=== PATIENT | female | born 1925 | race Caucasian/White ===

== ENCOUNTER 2016-09-03 01:28 | Inpatient (IN) | payer OTHER ==
[2016-09-03] MEDS ORDERED: OFIRMEV 1000 MG/ISOTONIC SOLN 100 ML IV ONE (01:44)
[2016-09-03] MEDS ORDERED: NS 1,000 ML IV ONE (01:44)
--- NOTE | 2016-09-03 01:49 | PROVIDER DOCUMENTATION ---
HPI-Fever - General Source: EMS - History of Present Illness-Fever Fever Severity/Quality: reports: other (100.2 orally) Timing: reports: still present, getting worse Severity: reports: severe Context: reports: decreased mental status, from senior living Associated Symptoms: reports: fatigue, fever/chills, vomiting. denies: arm pain , back/neck pain, chest pain, constipation, diarrhea, dizziness, genitourinary problems, headaches, heartburn, loss of appetite, muscle aches, nausea, seizure , shortness of breath, syncope <Galileo Bragg - Last Filed: 09/03/16 02:28> <Harsh Juan - Last Filed: 09/03/16 03:33> - General Stated Complaint: hyperglycemie,hypertensive,tachycardia Time Seen by Provider: 09/03/16 01:34 Allergies/Adverse Reactions: Patient Allergies Allergy/AdvReac Type Severity Reaction Status Date / Time MARI Inhibitors Allergy Unknown Verified 09/03/16 02:24 clonidine Allergy ANAPHYLAXIS Verified 09/03/16 02:24 influenza virus vaccine, Allergy HIVES Verified 09/03/16 02:24 specific [Influenza Virus Vacc,Specific] Penicillins Allergy Unknown Verified 09/03/16 02:24 Home Medications: Amlodipine [Norvasc] 5 mg PO QAM 04/23/15 Aspirin [Aspirin EC] 81 mg PO QAM 04/23/15 Levothyroxine [Synthroid] 50 mcg PO QAM 04/23/15 - History of Present Illness-Fever Nature of Presenting Problem: Pt is a 89 yof who presents to ER via EMS with CC of hyperglycemia, hypertension , and tachycardia from [facility]. On exam, pt is warm to the touch and lethargic. (Galileo Bragg) Review of Systems - Adult - REVIEW OF SYSTEMS - ADULT ROS:: Per EMS Constitutional: reports: fever, fatique. denies: chills Eyes: reports: no symptoms reported Ears, Nose, Mouth & Throat: reports: no symptoms reported Cardiovascular: reports: irregular heart rate (tachycardic), other (Hypertensive ). denies: chest pain, edema, heart murmur, orthopnea, palpitations, poor circulation, PND, syncope Respiratory: reports: no symptoms reported Gastrointestinal: reports: vomiting, other (hyperglycemic). denies: abdominal pain, constipation, diarrhea, nausea, poor appetite Genitourinary: reports: no symptoms reported Musculoskeletal: reports: no symptoms reported Integumentary: reports: no symptoms reported Neurological: reports: no symptoms reported Psychiatric: reports: no symptoms reported Endocrine: reports: no symptoms reported Hematologic/Lymphatic: reports: no symptoms reported Allergic/Immunologic: reports: no symptoms reported All Other Systems: Reviewed and Negative <Bragg,Galileo Last Filed: 09/03/16 02:28> Past History - Adult - PAST MEDICAL HISTORY-ADULT Review of Records: reports: Nursing Assessment Review, Medications Reviewed Cardiovascular: reports: CAD, HTN, hyperlipidemia, other (carotid blockage) Musculoskeletal: reports: arthritis Neurological: reports: CVA, 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), dementia, Seizures/Epilepsy - PRIOR SURGERIES/PROCEDURES Surgical/Procedure History: reports: hysterectomy - IMMUNIZATION STATUS Childhood Immunizations: See Nurse Assessment Flu Vaccine: See Nurse Assessment <YemiGalileo Last Filed: 09/03/16 02:28> Physical Exam-General - PHYSICAL EXAM-ADULT Initial Vital Signs Reviewed: Yes - CONSTITUTIONAL General Appearance: alert, moderate distress, lethargic - HEAD, EARS, NOSE, MOUTH & THROAT HENMT: normocephalic/atraumatic, moist mucous membranes, normal ENT inspection - NECK Neck: non-tender, full range of motion, supple - RESPIRATORY Respiratory: chest non-tender, lungs clear, rhonchi (R sided) - CARDIOVASCULAR Cardiovascular: normal peripheral pulses, tachycardia - GASTROINTESTINAL (ABDOMEN) Abdominal Exam: normal bowel sounds, non tender, soft - LYMPHATIC Lymphatic: no adenopathy - MUSCULOSKELETAL Back Exam: no CVA tenderness, no vertebral tenderness - SKIN Integumentary: normal color, diaphoresis, warm - NEUROLOGIC Neurologic: grossly normal, no motor/sensory deficits - PSYCHIATRIC Psych/Mental Status: normal mood/affect, normal thought content, normal thought process, oriented x 3 <BraggGalileo Last Filed: 09/03/16 02:28> Progress - REASSESSMENT Reassessment #1 Time Reassessed: 02:25 Status: other (Dr. Juan discussed results of labs/x-rays with pt's family.) - EKG 1 Time of EKG reading by physician:: 01:52 EKG Read and Signed by:: Harsh Juan EKG Interpretation (*Must complete 3 of following elements*): Abnormal (ST & T wave abnormality, consider lateral ischemia per Dr. Juan) Rate: 133 Rhythm: Sinus tachycardia - XRAY 1 XRAY: Bilateral XRAY Study: Chest Impression: See EMR Report XRAY Interpretation: Normal per Dr. Juan <Galileo Bragg - Last Filed: 09/03/16 02:28> <Harsh Juan - Last Filed: 09/03/16 03:33> - PLAN OF CARE/RESULTS Progress/Plan/Lab Results: Laboratory Tests 09/03/16 09/03/16 09/03/16 01:25 01:25 01:38 WBC 19.78 H RBC 4.26 Hgb 12.9 Hct 38.1 MCV 89.4 MCH 30.3 MCHC 33.9 RDW Std Deviation 13.1 Plt Count 247 MPV 12.1 H Immature Gran % (Auto) 0.3 Neut % (Auto) 95.6 H Lymph % (Auto) 1.4 L [place] % (Auto) 2.5 Eos % (Auto) 0.1 Baso % (Auto) 0.1 Immature Gran # (Auto) 0.06 H Neut # 18.91 H Lymph # 0.28 L [place] # 0.50 Eos # 0.02 Baso # 0.01 Specimen Type ARTERIAL Sample Site R RADIAL pH 7.38 pCO2 31 L pO2 50 L HCO3 20.1 Base Excess -5.7 L Oxyhemoglobin 82.3 L* ABG O2 Sat (Calculated) 15.3 ABG O2 Saturation 85.3 L ABG Carboxyhemoglobin 2.00 ABG Methemoglobin 1.5 Nicolas Test YES A-a O2 Difference 61.0 Total Hemoglobin 13.2 Lactate 5.10 H* Liter Flow 0.0 Blood Gas Modality ROOM AIR FiO2 % 21.0 Sodium 134 L Potassium 4.2 Chloride 95 L Carbon Dioxide 18 L Anion Gap 21 BUN 23 H Creatinine 1.0 H Estimated GFR/1.73 m2 52 BUN/Creatinine Ratio 23 Glucose 535 H* Calculated Osmolality 296 Calcium 8.1 L Total Bilirubin 0.23 AST 24 ALT 14 Alkaline Phosphatase 106 H Total Protein 7.0 Albumin 4.0 Globulin 3.0 Albumin/Globulin Ratio 1.3 Urine Source Urine Color Urine Turbidity Urine pH Ur Specific [place] Urine Protein Ur Glucose (Stick) Ur Ketones (Stick) Urine Blood Urine Nitrite Urine Bilirubin Urobilinogen Dipstick Urine Leukocytes Urine WBC (Auto) Urine RBC (Auto) U Epithel Cells (Auto) Urine Bacteria (Auto) Acetone Level 09/03/16 09/03/16 01:50 02:11 WBC RBC Hgb Hct MCV MCH MCHC RDW Std Deviation Plt Count MPV Immature Gran % (Auto) Neut % (Auto) Lymph % (Auto) [place] % (Auto) Eos % (Auto) Baso % (Auto) Immature Gran # (Auto) Neut # Lymph # [place] # Eos # Baso # Specimen Type Sample Site pH pCO2 pO2 HCO3 Base Excess Oxyhemoglobin ABG O2 Sat (Calculated) ABG O2 Saturation ABG Carboxyhemoglobin ABG Methemoglobin Nicolas Test A-a O2 Difference Total Hemoglobin Lactate Liter Flow Blood Gas Modality FiO2 % Sodium Potassium Chloride Carbon Dioxide Anion Gap BUN Creatinine Estimated GFR/1.73 m2 BUN/Creatinine Ratio Glucose Calculated Osmolality Calcium Total Bilirubin AST ALT Alkaline Phosphatase Total Protein Albumin Globulin Albumin/Globulin Ratio Urine Source CATH Urine Color YELLOW Urine Turbidity CLEAR Urine pH 5.5 Ur Specific [place] 1.022 Urine Protein 30 A Ur Glucose (Stick) >1000 A Ur Ketones (Stick) TRACE A Urine Blood NEGATIVE Urine Nitrite NEGATIVE Urine Bilirubin NEGATIVE Urobilinogen Dipstick NORMAL Urine Leukocytes NEGATIVE Urine WBC (Auto) <10 Urine RBC (Auto) <10 U Epithel Cells (Auto) <10 Urine Bacteria (Auto) NEGATIVE Acetone Level SMALL A Orders Category Date Time Status Finger Stick Blood Sugar (ED) DIRECTED Care 09/03/16 01:37 Active CHEST-PORTABLE [RAD] Stat Exams 09/03/16 01:46 Taken ABG [RESP] Routine Lab 09/03/16 01:38 Completed ACETONE SERUM [CHEM] Stat Lab 09/03/16 01:50 Completed BLOOD CULTURE [BLDCUL] Stat Lab 09/03/16 01:50 Results CBC WITH ELECTRONIC DIFF [HEME] Stat Lab 09/03/16 01:25 Completed CMP [COMPREHENSIVE METABOLIC PANEL] [CHEM] Stat Lab 09/03/16 01:25 Completed INFLUENZA SCREEN A/B Stat Lab 09/03/16 02:44 Completed UA NIMS W/REFLEX CULT [URINALYSIS] Stat Lab 09/03/16 02:11 Completed 0.9% Sodium Chloride Inj [Ns] 1,000 ml Med 09/03/16 01:44 Discontinued IV 999 mls/hr Acetaminophen [Ofirmev 1000 mg/Isotonic Soln] 100 ml Med 09/03/16 01:44 Discontinued IV NOW Azithromycin 500 mg/Ns [Zithromax 500 mg/Ns] 250 ml Med 09/03/16 03:31 Active IV NOW CefTRIAXONE 1 GM/NS [Rocephin 1 gm/Ns] 50 ml Med 09/03/16 03:31 Active IV NOW Insulin Human Regular [Humulin R] Med 09/03/16 03:01 Discontinued 5 unit IV NOW ONE Vital Signs Temp Pulse Resp BP Pulse Ox 09/03/16 02:22 102.2 F H 111 H 22 176/88 97 09/03/16 02:05 102.3 F H 136 H 30 H 220/97 98 MARI Inhibitors Allergy (Verified 09/03/16 02:24) Unknown clonidine Allergy (Verified 09/03/16 02:24) ANAPHYLAXIS influenza virus vaccine, specific [Influenza Virus Vacc,Specific] Allergy ( Verified 09/03/16 02:24) HIVES Penicillins Allergy (Verified 09/03/16 02:24) Unknown Amlodipine [Norvasc] 5 mg PO QAM 04/23/15 Aspirin [Aspirin EC] 81 mg PO QAM 04/23/15 Levothyroxine [Synthroid] 50 mcg PO QAM 04/23/15 Levetiracetam [Keppra] 1,000 mg PO BID #60 tablet 04/24/15 I&O 09/01/16 09/02/16 09/03/16 06:59 06:59 06:59 Output Total 30 Balance -30 Laboratory 09/03/16 09/03/16 09/03/16 02:11 01:50 01:38 WBC RBC Hgb Hct MCV MCH MCHC RDW Std Deviation Plt Count MPV Immature Gran % (Auto) Neut % (Auto) Lymph % (Auto) [place] % (Auto) Eos % (Auto) Baso % (Auto) Immature Gran # (Auto) Neut # Lymph # [place] # Eos # Baso # Specimen Type ARTERIAL Sample Site R RADIAL pH 7.38 pCO2 31 L pO2 50 L HCO3 20.1 Base Excess -5.7 L Oxyhemoglobin 82.3 L* ABG O2 Sat (Calculated) 15.3 ABG O2 Saturation 85.3 L ABG Carboxyhemoglobin 2.00 ABG Methemoglobin 1.5 Nicolas Test YES A-a O2 Difference 61.0 Total Hemoglobin 13.2 Lactate 5.10 H* Liter Flow 0.0 Blood Gas Modality ROOM AIR FiO2 % 21.0 Sodium Potassium Chloride Carbon Dioxide Anion Gap BUN Creatinine Estimated GFR/1.73 m2 BUN/Creatinine Ratio Glucose Calculated Osmolality Calcium Total Bilirubin AST ALT Alkaline Phosphatase Total Protein Albumin Globulin Albumin/Globulin Ratio Urine Source CATH Urine Color YELLOW Urine Turbidity CLEAR Urine pH 5.5 Ur Specific [place] 1.022 Urine Protein 30 A Ur Glucose (Stick) >1000 A Ur Ketones (Stick) TRACE A Urine Blood NEGATIVE Urine Nitrite NEGATIVE Urine Bilirubin NEGATIVE Urobilinogen Dipstick NORMAL Urine Leukocytes NEGATIVE Urine WBC (Auto) <10 Urine RBC (Auto) <10 U Epithel Cells (Auto) <10 Urine Bacteria (Auto) NEGATIVE Acetone Level SMALL A 09/03/16 09/03/16 01:25 01:25 WBC 19.78 H RBC 4.26 Hgb 12.9 Hct 38.1 MCV 89.4 MCH 30.3 MCHC 33.9 RDW Std Deviation 13.1 Plt Count 247 MPV 12.1 H Immature Gran % (Auto) 0.3 Neut % (Auto) 95.6 H Lymph % (Auto) 1.4 L [place] % (Auto) 2.5 Eos % (Auto) 0.1 Baso % (Auto) 0.1 Immature Gran # (Auto) 0.06 H Neut # 18.91 H Lymph # 0.28 L [place] # 0.50 Eos # 0.02 Baso # 0.01 Specimen Type Sample Site pH pCO2 pO2 HCO3 Base Excess Oxyhemoglobin ABG O2 Sat (Calculated) ABG O2 Saturation ABG Carboxyhemoglobin ABG Methemoglobin Nicolas Test A-a O2 Difference Total Hemoglobin Lactate Liter Flow Blood Gas Modality FiO2 % Sodium 134 L Potassium 4.2 Chloride 95 L Carbon Dioxide 18 L Anion Gap 21 BUN 23 H Creatinine 1.0 H Estimated GFR/1.73 m2 52 BUN/Creatinine Ratio 23 Glucose 535 H* Calculated Osmolality 296 Calcium 8.1 L Total Bilirubin 0.23 AST 24 ALT 14 Alkaline Phosphatase 106 H Total Protein 7.0 Albumin 4.0 Globulin 3.0 Albumin/Globulin Ratio 1.3 Urine Source Urine Color Urine Turbidity Urine pH Ur Specific [place] Urine Protein Ur Glucose (Stick) Ur Ketones (Stick) Urine Blood Urine Nitrite Urine Bilirubin Urobilinogen Dipstick Urine Leukocytes Urine WBC (Auto) Urine RBC (Auto) U Epithel Cells (Auto) Urine Bacteria (Auto) Acetone Level (Harsh Juan) Departure <Galileo Bragg - Last Filed: 09/03/16 02:28> - Departure Time of Disposition Order: 03:33 Certified Medical Emergency: Emergent <Harsh Juan - Last Filed: 09/03/16 03:33> - Departure DIAGNOSIS: Febrile illness, acute, Hyperglycemia Disposition: ADMITTED INPATIENT 09 Condition: Stable Attestation - Scribe Verification/Attestation Scribe:: Galileo Bragg Acting as Scribe for:: Harsh Juan Scribe documention review:: This chart was documented by a scribe and accurately reflects the service the provider performed and the decisions made by the provider. <Galileo Bragg - Last Filed: 09/03/16 02:28> Physician Attestation
[2016-09-03 01:53] LABS: ALLEN TEST YES; BE -5.7 mmoll (-3.0-3.0); BLOOD TYPE ARTERIAL; DRAW SITE R RADIAL; METHB 1.5 % (0.0-1.5); O2(CT) 15.3 mL/dL (15.0-23.0); PCO2(98.6) 31 mmHg (35-45); PO2(98.6) 50 mmHg (60-100); SAMPLE BLOOD; SAO2 85.3 % (95.0-100.0); THB 13.2 g/dL (11.5-17.4); pH(98.6) 7.38 (7.35-7.45)
[2016-09-03 01:55] LABS: MODALITY ROOM AIR
[2016-09-03 02:35] LABS: BASO% 0.1 % (0.0-0.8); EOS# 0.02 X1000 (0.0-0.7); EOS% 0.1 % (0.0-10.0); HEMATOCRIT 38.1 % (37.0-47.0); HEMOGLOBIN 12.9 g/dL (12.0-16.0); IMM GRAN# 0.06 X1000 (0.0-0.04); IMM GRAN% 0.3 % (0.0-0.5); LYMPH# 0.28 X1000 (1.2-3.4); LYMPH% 1.4 % (20.5-51.1); MANUAL DIFF NEEDED? NO; MCH 30.3 PG (27-31); MCHC 33.9 g/dL (33-37); MCV 89.4 FL (81-99); MONO% 2.5 % (1.7-9.3); MPV 12.1 FL (7.4-10.4); NEUT% 95.6 % (42.2-75.2); PLT 247 X1000 (130-400); RBC 4.26 XMIL (4.2-5.4)
[2016-09-03 02:36] LABS: URINE CULTURE NEEDED? NO; URINE MICRO REVIEW NEEDED? NO; URINE SOURCE CATH
[2016-09-03 02:39] LABS: BILIRUBIN URINE NEGATIVE (NEGATIVE); BLOOD URINE NEGATIVE (NEGATIVE); COLOR YELLOW; GLUCOSE URINE >1000 mg/dL (NEGATIVE); LEUKOCYTES URINE NEGATIVE (NEGATIVE); NITRITE URINE NEGATIVE (NEGATIVE); PH URINE 5.5; PROTEIN URINE 30 mg/dL (NEGATIVE); SP GRAVITY URINE 1.022; TURBIDITY URINE CLEAR (CLEAR); UROBILINOGEN URINE NORMAL (NORMAL)
[2016-09-03 02:40] LABS: UR EPITHELIAL CELLS <10 /HPF (<10); URINE BACTERIA NEGATIVE /HPF; URINE RBC <10 /HPF (<10); URINE WBC <10 /HPF (<10)
[2016-09-03 02:49] LABS: CALCIUM 8.1 mg/dL (8.8-10.2); POTASSIUM 4.2 mmol/L (3.5-5.1); TOTAL BILIRUBIN 0.23 mg/dL (0.20-1.00)
[2016-09-03] MEDS ORDERED: HUMULIN R IV ONE (03:01)
[2016-09-03] MEDS ORDERED: ZITHROMAX 500 MG/NS 250 ML IV ONE (03:31)
[2016-09-03] MEDS ORDERED: ROCEPHIN 1 GM/NS 50 ML IV ONE (03:31)
[2016-09-03] MEDS ORDERED: MORPHINE IV ONE (05:19)
[2016-09-03] MEDS: DUONEB (A & A) INH PRN ×3 (05:20→15:51)
[2016-09-03 07:46] LABS: HEMOGLOBIN A1C 9.9 % (4.8-6.0)
[2016-09-03] MEDS ORDERED: NS 1,000 ML IV SCH (07:51)
[2016-09-03] MEDS ORDERED: TYLENOL PO PRN (07:51)
--- NOTE | 2016-09-03 07:55 | SEPSIS: TISSUE PERFUSION ASSMT ---
Sepsis: Tissue Perfusion Assmt - Physical Exam Assessment Date: 09/03/16 Time Assessment Initialized: 06:00 Vital Signs: Last Vital Signs Temp 99.2 F 09/03/16 05:22 Pulse 112 H 09/03/16 07:35 Resp 16 09/03/16 07:35 BP 145/65 09/03/16 05:22 Pulse Ox 93 L 09/03/16 07:35 Height 5 ft 6 in Weight 156 lb Lung Sounds:: lungs clear Heart Sounds:: Regular Capillary Refill Time: Less Than 2 Seconds Peripheral Pulse Evaluation:: radial (R): 3+, radial (L): 3+, dorsalis-pedis (R) : 2+, dorsalis-pedis (L): 2+, posterior tibialis (R): 2+, posterior tibialis (L) : 2+ Skin Exam:: pink - Impression Impression:: Tissue Perfusion Adequate - Plan Plan:: See Orders
[2016-09-03] MEDS: ASPIRIN EC PO SCH (09:00)
[2016-09-03] MEDS ORDERED: APRESOLINE IV ONE (09:39)
--- NOTE | 2016-09-03 10:51 | HISTORY AND PHYSICAL ---
PRIMARY CARE PROVIDER: Maxime Gongora MD at [facility] CHIEF COMPLAINT: Fever, shortness of breath, vomiting. HISTORY OF PRESENT ILLNESS: Ms. Diallo is an 89-year-old female who presented to the ER this morning at approximately 1:30. Staff at [facility] sent the patient for evaluation due to fever, shortness of breath, vomiting, as well as some lethargy , also. Upon arrival to the ER the patient was tachycardic as well as hypertensive. She was hyperglycemic, as well, with serum blood glucose of 535. She was also warm to touch and was lethargic initially upon arrival. The patient's vital signs upon arrival to the ER were temperature of 102.3, heart rate 136, respirations 30, blood pressure was 220/97, and oxygen saturation was in the 80s. The patient was placed on nasal cannula at 2 L and her oxygen saturation did improve into the 90s. She was given Tylenol for her fever which did reduce down to 99.2. She was also given a total of 2 L of normal saline bolus, one was by EMS prior to arrival and the second was given in the ER. Since the fluid bolus the patient's heart rate has decreased, as well. Her blood pressure has also decreased with the last reading being 145/65. The patient's lung sounds upon arrival did have rhonchi noted. ER staff, also per the patient, has had a wet nonproductive cough, as well, since arrival to the ER. Upon evaluation in the ER the patient was found to be hypoxic as previously mentioned with a sat in the 80s. She also had an elevated white blood cell count of 19.7. Arterial blood gases did reveal a pH of 7.38, pCO2 of 31, pO2 of 50, and a lactate of 5.10. Blood cultures were obtained. A urinalysis was obtained which showed no signs of infection. A chest x-ray was performed which did not show any acute abnormalities at this time and no signs of pneumonia, but we are awaiting official radiology overread. At this time it does appear that the patient does have a possible sepsis as well as a febrile illness from an unknown source at this time. Given that she has had fever as well as some shortness of breath, tachypnea, hypoxia, a nonproductive wet cough, and leukocytosis, we suspect that she might have a pneumonia and we will continue treating her as such with antibiotics. I did speak with the patient's family member, who was present with her, and she stated that normally the patient is awake and alert. She does know who she is, where she is , though does have some dementia and does not always know what month or time it is. She states that she normally can recognize family members and can carry on a conversation and requests any needs that she has. She states that she is pretty active at the [facility] and that she does get around in her wheelchair there. She stated that she last saw her on Sunday and that she was at her normal at that time. Upon my evaluation in the ER the patient was able to tell me her name as well as that she is in the hospital, though she was pretty drowsy upon assessment so was not easily arousable with light tactile and verbal stimulation. The patient did previously receive morphine just prior to my assessment, as well. In the ER the nurse did perform a swallowing screen with the patient and she was able to swallow 60 mL of water without any difficulty and showed no signs of choking or difficulty swallowing with this. We will admit the patient to [facility] for further evaluation of her possible sepsis, febrile illness, and hyperglycemia. REVIEW OF SYSTEMS: A 10-point review of systems was conducted with the patient and all were negative except for pertinent positives mentioned in the above HPI. The patient does have some dyspnea noted as well as an elevated heart rate. She also did have one episode of vomiting just prior to arrival in the ER for which the ER nurse reported did appear to have a dark, possibly coffee grounds appearance. PAST MEDICAL HISTORY: 1. CVA. 2. 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 3. Hypertension. 4. Seizures. 5. Hypothyroidism. 6. Hyperlipidemia. 7. Dementia. 8. Diabetes mellitus type 2. 9. Muscle weakness. 10. Dysphasia. 11.Depression. PAST SURGICAL HISTORY: Hysterectomy. SOCIAL HISTORY: No known tobacco, alcohol, or illicit drug use. The patient is and currently is a resident at [facility]. She is able to perform activities at [facility] via wheelchair. FAMILY HISTORY: Positive for CVA. ALLERGIES: The patient has allergies to MARI inhibitors, clonidine, influenza vaccine, and penicillin. Though the patient is allergic to penicillin, she did receive a dose of Rocephin in the ER and did not show any signs of adverse or anaphylactic reaction. HOME MEDICATIONS: 1. MiraLAX 17 g p.o. every other day. 2. Lispro insulin per sliding scale. 3. Synthroid 50 mcg p.o. q.a.m. 4. Keppra 1000 mg p.o. b.i.d. 5. Aspirin 81 mg p.o. q.a.m. 6. Norvasc 5 mg p.o. q.a.m. DIAGNOSTIC DATA/LABORATORY RESULTS: White blood cell count is 19.7, hemoglobin 12.9, hematocrit 38.1, platelet count 247. Sodium 134, potassium 4.2, chloride 95, bicarbonate is 18, BUN 23, creatinine 1.0 with a GFR of 52. Glucose was 535. Hemoglobin A1c was 9.9. Calcium 8.1, magnesium 1.8. Liver function tests within normal limits. Alkaline phosphatase of 106. Troponin was less than 0.01. Pro BNP was 332. TSH was 1.61. Plasma lactate was initially 5.10 with a repeat after fluid bolus of 3.5. Serum acetone level had a small amount noted. Arterial blood gases were obtained on room air with a pH of 7.3, pCO2 of 31, pO2 of 58, HCO3 of 20.1 with oxygen hemoglobin of 82.3 and O2 saturation of 85.3. A urinalysis obtained via catheter was positive for protein, greater than 1000 glucose, trace ketones, but was negative for nitrites, blood, leukocytes, white blood cells, or bacteria. EKG performed in the ER showed a sinus tachycardia with an ST and T-wave abnormality, considered lateral ischemia at a rate of 133. A chest x-ray portable was performed in the ER which showed no acute disease at this time, but we are awaiting the official radiology overread. PHYSICAL EXAMINATION: VITAL SIGNS: Temperature 99.2, heart rate 115, respirations 20, blood pressure of 145/65, oxygen saturation is 93% nasal cannula at 2 L. GENERAL: Ms. Diallo is an 89-year-old female who was resting on the ER stretcher in no acute distress at this time. She was drowsy upon examination, though was easily arousable with light tactile stimulation and verbal calling of her name. She was able to tell me her name and that she was at the hospital, although was not able to answer many other questions at this time. HEENT: Head is atraumatic, normocephalic. Pupils are equal, round and reactive to light, were 3 mm bilaterally and brisk. Sclerae are white, no lesions noted. Conjunctivae are pink. Oral mucosa is dry. Oropharynx is clear. NECK: Supple, trachea is midline. CARDIOVASCULAR: The patient has S1, S2 noted. No murmurs, gallops, or rubs appreciated with a regular rhythm that was slightly tachycardic. PULMONARY: The patient has symmetrical chest expansion bilaterally. Lung sounds are clear to auscultation upon my examination bilaterally and full winters. She is not in any acute respiratory distress at this time and is maintaining oxygen saturation of 93% to 94% on nasal cannula at 3 L at this time. ABDOMEN: Soft, nondistended, though the patient does have a slightly protuberant abdomen noted. No facial grimacing noted upon palpation. Bowel sounds were present in all 4 quadrants, were normoactive. GENITOURINARY: The patient at this time has had a Garnett catheter placed and does have clear yellow urine noted in the drainage bag. EXTREMITIES: The patient does have +1 pitting edema noted to bilateral lower extremities and possibly from mid calf down. Pulse, motor, and sensory is intact in all extremities at this time. Pedal pulses are 2+ bilaterally. Capillary refill is less than 2. INTEGUMENTARY: The patient's skin is pink, warm, dry, and intact. No lesions or sores noted. NEUROLOGICAL: The patient is alert and oriented to person and place only. She was, as previously mentioned, slightly drowsy upon examination, though was easily arousable to light tactile stimulation by tapping her shoulder and calling her name verbally. Cranial nerves 2-12 appear to be grossly intact. ASSESSMENT AND PLAN: 1. Possible sepsis. The patient's lactate is elevated, as well, as she does have leukocytosis with a white blood cell count of 19. This has an unknown source at this time , though given her symptoms of fever, tachycardia, hypoxia, as well as a nonproductive wet cough , we suspect pneumonia, though a chest x-ray at this time does appear to be clear. We will go ahead and treat her with azithromycin and Rocephin q.24h. We have ordered blood cultures as well as a sputum culture and we will monitor her status closely and await results of her blood culture. The patient did receive a total of 2 L normal saline bolus in the ER as well. 2. Febrile illness. Will continue treatment as in number one. 3. Leukocytosis. We will continue with treatment as in number one, as well. 4. Hypoxia. At this time the patient is maintaining oxygen saturations of 93% to 94% with a nasal cannula at [address] her on continuous pulse oximetry and continue to monitor this. 5. Acute kidney injury. This does appear to be mild. It could likely be secondary to some volume depletion as well as infection. We will provide her with gentle fluid resuscitation of normal saline 100 an hour and we will continue to follow. 6. Diabetes mellitus type 2, uncontrolled. Her hemoglobin A1c was elevated at 9.9 and she is hyperglycemic, though this could also be contributory to her current infection, though we will treat her with Humalog sliding scale insulin low dose and continue to follow her closely. 7. Hypertension. We will continue with her daily medicine of [facility]. 8. Hypothyroidism. Her TSH was within normal limits. We will continue her Synthroid at 50 mcg p.o. daily. As previously mentioned, we did perform a swallowing screen on the patient and she did not have any difficulty. We have placed the patient on a mechanical soft diet with thin liquids for which what she receives at the halfway as well. We did also place her on aspiration precautions just in case, and we will closely monitor her for this as well. We will place her on CIC with telemetry. She will have DVT prophylaxis provided with SCDs. We will do pattern fingerstick blood sugars. Strict intake and output q.8h. We will do vital signs q.4h. We will also give her albuterol/Atrovent treatments q.4-6h. p.r.n. as needed. We have placed a Case Management and [employer] consult, as well, for possible placement and return to [facility] on her discharge. We placed an order for a CBC and a BMP tomorrow morning and are awaiting blood cultures and sputum culture at this time. The nurse did report in the ER that the patient did have a vomiting episode just prior to her arrival in the ER; this did appear to be dark and possibly coffee grounds in appearance. We did order a Gastroccult as well as a Hemoccult stool just to rule this out, though the patient's hemoglobin and hematocrit are within normal limits at this time. So we will just await those results and continue to follow. Further orders and recommendations pending hospital course, diagnostic studies, and physician evaluation. Dictated by EUGENIO Vu for Joel Benedict MD Patient seen and evaluated by I and I agree with PEDRO Amezquita' plans. Admit to Inpatient. Continue broad spectrum IV antibiotics and follow pancultures. Serial exams, serial neurochecks. Fall, aspiration precautions. MTDD
[2016-09-03] MEDS: HUMALOG SUBQ SCH ×3 (11:00→21:00)
[2016-09-03] MEDS ORDERED: VANCOMYCIN IV PER PHARMACY MISC SCH (11:45)
[2016-09-03] MEDS ORDERED: ZOSYN 3.375 GM/NS 50 ML IV SCH (11:45)
--- NOTE | 2016-09-03 12:20 | Diag Imaging Result Document ---
PROCEDURE NAME: CHEST-PORTABLE - 09/03/2016 AP PORTABLE CHEST AT 0205 HOURS: FINDINGS: The inspiration is less optimal than on 07/15/2015. Otherwise, there has been no appreciable change. IMPRESSION: Poor inspiration.
[2016-09-03] MEDS: NS 1,000 ML IV SCH ×2 (12:27→23:29)
[2016-09-03 12:47] LABS: BANDS 20 % (0-1); LYMPHS 4 % (21-51); MONO 2 % (1-9)
[2016-09-03 13:16] LABS: AGAP 16; BUN 18 mg/dL (8-22); CALCIUM 7.2 mg/dL (8.8-10.2); CHLORIDE 102 mmol/L (98-107); COSMO 284; POTASSIUM 3.4 mmol/L (3.5-5.1); SODIUM 138 mmol/L (136-145); TCO2 20 mmol/L (25-35)
[2016-09-03] MEDS: AZACTAM 1 GM in NS 50 ML IV SCH ×2 (13:18→20:10)
[2016-09-03] MEDS: SYNTHROID PO SCH (13:28)
[2016-09-03] MEDS: MIRALAX PO SCH (13:28)
[2016-09-03] MEDS: NORVASC PO SCH (13:28)
[2016-09-03] MEDS: KEPPRA PO SCH ×2 (13:28→23:29)
[2016-09-03] MEDS ORDERED: VANCOMYCIN 1,750 MG in NS 250 ML IV ONE (14:00)
--- NOTE | 2016-09-03 15:17 | PROGRESS NOTE ---
DATE: 09/03/2016 SUBJECTIVE: Ms. Diallo was just admitted just a while ago. She is coming from a longterm with chief complaint of shortness of breath and hypoxemia and has been admitted by Dr. Benedict as possible sepsis with the source possibly coming from the lungs. Today Ms. Diallo herself has not been able to give any form of history. Per the nursing staff, she has just been a little sleepy. OBJECTIVE: Vital signs: Blood pressure is 164/96, pulse of 109, respirations 18, temperature is 99.2 degrees. Patient had a temperature of 102.3 degrees. General: Ms. Diallo is an 89-year- old, female. She was in bed. She seems to be a little bit tachypneic. HEENT: Mucosa slightly dry. Anicteric. Acyanotic. Neck: Supple. Chest: Air entry is bilaterally reduced. Cardiovascular: Regular rate and rhythm. Abdomen: Soft, distended, but nontender. Extremities: No pedal edema. Central Nervous System: Patient is sleepy but is easily arousable. Follows some simple commands. Seems to have some underlying dementia. LABORATORY DATA: WBC is 19.78, hemoglobin is 12.9, platelet count of 247,000. Sodium is 134, potassium 4.2, chloride 95, bicarb 18, gap of 21. Patient had small acetone. ASSESSMENT: 1. Sepsis of unclear source, could be possibly from genitourinary versus the lungs. The patient is allergic to penicillin per her chart so we are going to discontinue the ceftriaxone and azithromycin and broaden our coverage with aztreonam 1 g q.8 h. as well as vancomycin. 2. Hypoxemia on presentation. A chest x-ray so far is negative. The patient has improved remarkably on nasal oxygenation. Will therefore just keep eye on this. 3. Acute kidney injury secondary to dehydration. Will continue with IV fluids. 4. High anion gap metabolic acidosis, likely multifactorial including lactic acidosis as well as possible diabetic ketoacidosis. The patient is getting hydration and antibiotics for the lactic acidosis which we think is coming from the sepsis. In terms of the possible DKA, I will repeat the BMP to see where the bicarbonate and the gap are. If they are still present, I will institute the DKA protocol and transfer the patient to the ICU. 5. Hypothyroidism, stable. 6. Hypertension, controlled. 7. Diabetes mellitus with A1c of 9.9 consistent with very uncontrolled. PLAN: As I said, I am going to repeat a BMP to see where the gap and where the bicarb are. We will change the antibiotics as mentioned above. If the patient has still gap and DKA, we will transfer her to the ICU.
[2016-09-03] MEDS ORDERED: NS NEB INH SCH (22:45)
[2016-09-04] MEDS ORDERED: ROCEPHIN 1 GM/NS 50 ML IV SCH (04:00)
[2016-09-04] MEDS: AZACTAM 1 GM in NS 50 ML IV SCH ×3 (04:20→21:02)
[2016-09-04] MEDS ORDERED: ZITHROMAX 500 MG/NS 250 ML IV SCH (05:00)
[2016-09-04 05:03] LABS: MANUAL DIFF NEEDED? NO
[2016-09-04] MEDS: HUMALOG SUBQ SCH ×4 (06:12→21:02)
[2016-09-04] MEDS: SYNTHROID PO SCH (06:12)
[2016-09-04 06:42] LABS: AGAP 13; BUN 16 mg/dL (8-22); CALCIUM 7.3 mg/dL (8.8-10.2); CHLORIDE 106 mmol/L (98-107); COSMO 285; POTASSIUM 3.8 mmol/L (3.5-5.1); SODIUM 139 mmol/L (136-145); TCO2 20 mmol/L (25-35)
[2016-09-04 06:55] LABS: BASO% 0.2 % (0.0-0.8); EOS# 0.06 X1000 (0.0-0.7); EOS% 0.6 % (0.0-10.0); HEMATOCRIT 30.7 % (37.0-47.0); HEMOGLOBIN 10.2 g/dL (12.0-16.0); IMM GRAN# 0.02 X1000 (0.0-0.04); IMM GRAN% 0.2 % (0.0-0.5); LYMPH# 1.12 X1000 (1.2-3.4); MCH 30.2 PG (27-31); MCHC 33.2 g/dL (33-37); MCV 90.8 FL (81-99); MONO# 0.47 X1000 (0.11-0.59); MONO% 4.6 % (1.7-9.3); MPV 11.9 FL (7.4-10.4); NEUT% 83.4 % (42.2-75.2); PLT 174 X1000 (130-400); RBC 3.38 XMIL (4.2-5.4)
[2016-09-04] MEDS: ATROVENT NEB INH PRN ×5 (07:33→23:02)
[2016-09-04] MEDS: XOPENEX NEB INH PRN ×5 (07:33→23:02)
[2016-09-04] MEDS: KEPPRA PO SCH ×2 (09:55→21:02)
[2016-09-04] MEDS: NORVASC PO SCH (09:55)
[2016-09-04] MEDS: ASPIRIN EC PO SCH (09:55)
--- NOTE | 2016-09-04 10:03 | EKG Report ---
Test Performed on : 09/03/2016 01:52:38 AM Test Reason : ED. Not ordered in [place] Blood Pressure : / mmHG Vent. Rate : 133 BPM Atrial Rate : 133 BPM P-R Int : 156 ms QRS Dur : 084 ms QT Int : 286 ms P-R-T Axes : 070 018 138 degrees QTc Int : [address] & T wave abnormality, consider lateral ischemia Abnormal ECG When compared with ECG of 15-JUL-2015 20:25, premature ventricular complexes. are no longer present Unconfirmed Result
--- NOTE | 2016-09-04 10:57 | PROGRESS NOTE ---
DATE: 09/04/2016 SUBJECTIVE: The patient is a little bit sleepy today, but according to the family, daughter, who is at bedside, she is a little bit more alert. Breathing fine, according to her too. As per nursing staff, she was developing some episode of disorientation, when she becomes a little bit restless and trying to pull out some IV lines and also Garnett catheter. OBJECTIVE: Vital Signs: Temperature 97.2 degrees, heart rate 95, respiratory rate 16, blood pressure 177/78. O2 saturation 97% on 3 L nasal cannula. General Examination: This is an 89- year-old female, lying in bed, in no acute distress. HEENT: Head is normocephalic, atraumatic. Anicteric sclerae and pale conjunctivae. Neck: Supple. No jugular venous distention noted. No carotid bruits. No lymphadenopathy. No thyromegaly. Cardiovascular: S1, S2 heard. Tachycardic. No murmurs, gallops, or rubs. Respiratory Examination: Decreased breath sounds globally with some coarse breath sounds noted in both bases. Patient is not using any accessory muscles or having work of breathing. Abdomen: Soft, nontender to palpation. Bowel sounds present. No organomegaly. Extremities: No clubbing, cyanosis, or edema. Peripheral pulses present in both legs. Neurological Examination: The patient is sleepy, but seems like she moves 4 extremities. LABORATORY DATA: White cell count 10.16, hemoglobin 10.2, hematocrit 30.7, platelets 174,000. BMP unremarkable with CO2 of 20. ASSESSMENT AND PLAN: 1. Sepsis of unclear etiology. The patient's mental status is improving. We are not exactly, at this point, know where this infection is coming from. Urinalysis is normal and the chest x- ray on admission was normal, although with poor inspirations. So, at this time we are going to order a CT of the chest to see there is any infiltrates or pneumonia that we are missing. At this point, we are going to continue with vancomycin and aztreonam. 2. Hypoxemia presentation. Definitely now this patient is improving with O2 saturations at 95 on 3 L nasal cannula. 3. Acute kidney injury. This condition has completely resolved. 4. High anion gap metabolic acidosis. At least in the last ABG, there is no metabolic acidosis. Anion gap is back to normal. 5. Hypothyroidism. Stable. 6. Hypertension. Patient is on amlodipine 5 mg p.o. daily that we are going to increase to b.i.d., because the blood pressure is between 160 and 170 systolic blood pressure. 7. Diabetes mellitus type 2. A1c is 9.9, so I think this patient has a not well-controlled diabetes mellitus. We will continue with the same management.
--- NOTE | 2016-09-04 11:55 | Diag Imaging Result Document ---
PROCEDURE NAME: CT THORAX W/O CONTRAST - 09/04/2016 CT OF THE CHEST WITHOUT CONTRAST: FINDINGS: There is considerable motion artifact. There are a number of nonspecific centimeter and smaller size mediastinal nodes. There is a tiny amount of fluid in the right costophrenic sulcus. There are patchy alveolar opacities in the superior segment of the right lower lobe and the right upper lobe. There are no previous studies. There are opacities present in the left lower lobe and lingula. There is gas and some fluid present throughout the thoracic esophagus and there is a large hiatal hernia. IMPRESSION: Bronchopneumonia. The possibility of aspiration pneumonia cannot be excluded.
[2016-09-04] MEDS: NS 1,000 ML IV SCH (13:52)
[2016-09-05] MEDS ORDERED: VANCOMYCIN 1,400 MG in NS 250 ML IV SCH (02:00)
[2016-09-05] MEDS: NS 1,000 ML IV SCH ×2 (02:48→21:42)
[2016-09-05] MEDS: XOPENEX NEB INH PRN ×6 (03:03→23:09)
[2016-09-05] MEDS: ATROVENT NEB INH PRN ×6 (03:03→23:09)
[2016-09-05 04:57] LABS: MANUAL DIFF NEEDED? NO
[2016-09-05 05:06] LABS: EOS# 0.06 X1000 (0.0-0.7); EOS% 0.9 % (0.0-10.0); HEMATOCRIT 30.1 % (37.0-47.0); HEMOGLOBIN 9.7 g/dL (12.0-16.0); IMM GRAN# 0.02 X1000 (0.0-0.04); IMM GRAN% 0.3 % (0.0-0.5); LYMPH# 1.34 X1000 (1.2-3.4); LYMPH% 20.9 % (20.5-51.1); MCH 29.4 PG (27-31); MCHC 32.2 g/dL (33-37); MCV 91.2 FL (81-99); MONO% 7.8 % (1.7-9.3); MPV 11.5 FL (7.4-10.4); NEUT% 70.1 % (42.2-75.2); PLT 174 X1000 (130-400)
[2016-09-05 05:28] LABS: AGAP 15; BUN 11 mg/dL (8-22); CALCIUM 7.5 mg/dL (8.8-10.2); CHLORIDE 106 mmol/L (98-107); COSMO 286; POTASSIUM 3.1 mmol/L (3.5-5.1); SODIUM 142 mmol/L (136-145); TCO2 21 mmol/L (25-35)
[2016-09-05] MEDS: AZACTAM 1 GM in NS 50 ML IV SCH ×3 (05:59→23:15)
[2016-09-05] MEDS: SYNTHROID PO SCH (06:21)
[2016-09-05] MEDS: HUMALOG SUBQ SCH ×4 (06:57→22:18)
[2016-09-05] MEDS ORDERED: KLOR-CON PO ONE (08:50)
[2016-09-05] MEDS: KEPPRA PO SCH ×2 (09:51→21:41)
[2016-09-05] MEDS: NORVASC PO SCH (09:51)
[2016-09-05] MEDS: ASPIRIN EC PO SCH (09:51)
[2016-09-05] MEDS: MIRALAX PO SCH (09:51)
--- NOTE | 2016-09-05 16:22 | PROGRESS NOTE ---
DATE: 09/05/2016 SUBJECTIVE: This patient is awake today. She is answering some of my questions. I think she has some kind of baseline dementia. Her daughter is at the bedside. She is breathing better according to the daughter. OBJECTIVE: Vital Signs: Temperature 98 degrees, pulse 102, respiratory rate 18, blood pressure 155/66, oxygen saturation 100% on 2 L of nasal cannula. HEENT: Head normocephalic. No trauma. PERRLA. Neck: Supple. No JVD. No masses. Cardiovascular: Regular rhythm and rate. No murmurs. Tachycardic. Lungs: Right side upper and lower lobe rhonchi, decreased breath sounds at the right base. Abdomen: Soft, nontender, nondistended. No hepatosplenomegaly. Extremities: No edema. No clubbing. No cyanosis. Neurological: The patient is alert. She is following some of my commands, she is able to say her name and she is able to return I recognize the family members, she is not oriented in time, she is on and off oriented in place. LABORATORY: WBC 6.4, hemoglobin 9.7, hematocrit 30.1, platelets 174,000. Sodium 142, potassium 3.1, chloride 106, bicarbonate 21, BUN 11, creatinine 0.6, glucose 163, calcium 7.5. ASSESSMENT AND PLAN: 1. Right lower lung and the right upper lung pneumonia, possibly related to aspiration pneumonia, we are going to continue with the antibiotics. This patient is getting better. 2. Hypoxemia on presentation, she is getting better. We will continue with oxygen. At this moment she is on nasal cannula. 3. Acute kidney injury. Resolved. 4. Hypothyroidism, stable. Continue with treatment. 5. Hypertension. Patient is on amlodipine 5 mg p.o. daily. It was increased to b.i.d. We will continue monitoring her blood pressure. Compared with the admission, the blood pressure is better. 6. Uncontrolled diabetes, her hemoglobin A1c is 9.9, it is not well controlled. We will continue with the same management. The blood sugar is getting better. CRITICAL CARE TIME: 35 minutes.
[2016-09-06] MEDS: ATROVENT NEB INH PRN ×4 (03:10→19:22)
[2016-09-06] MEDS: XOPENEX NEB INH PRN ×4 (03:10→19:22)
[2016-09-06 04:53] LABS: MANUAL DIFF NEEDED? NO
[2016-09-06 04:56] LABS: BASO% 0.2 % (0.0-0.8); EOS# 0.09 X1000 (0.0-0.7); EOS% 1.7 % (0.0-10.0); HEMATOCRIT 30.8 % (37.0-47.0); HEMOGLOBIN 10.2 g/dL (12.0-16.0); LYMPH# 1.22 X1000 (1.2-3.4); LYMPH% 22.5 % (20.5-51.1); MCH 29.9 PG (27-31); MCHC 33.1 g/dL (33-37); MCV 90.3 FL (81-99); MONO# 0.45 X1000 (0.11-0.59); MONO% 8.3 % (1.7-9.3); MPV 11.3 FL (7.4-10.4); NEUT% 67.3 % (42.2-75.2); PLT 193 X1000 (130-400); RBC 3.41 XMIL (4.2-5.4)
[2016-09-06 05:27] LABS: AGAP 14; BUN 7 mg/dL (8-22); CALCIUM 7.8 mg/dL (8.8-10.2); CHLORIDE 105 mmol/L (98-107); COSMO 283; POTASSIUM 3.1 mmol/L (3.5-5.1); SODIUM 141 mmol/L (136-145); TCO2 22 mmol/L (25-35)
[2016-09-06] MEDS: SYNTHROID PO SCH (06:24)
[2016-09-06] MEDS: AZACTAM 1 GM in NS 50 ML IV SCH ×2 (06:25→18:39)
[2016-09-06] MEDS: HUMALOG SUBQ SCH ×4 (06:59→23:56)
[2016-09-06] MEDS: NS 1,000 ML IV SCH (08:49)
[2016-09-06] MEDS: ASPIRIN EC PO SCH (08:49)
[2016-09-06] MEDS: NORVASC PO SCH (08:49)
[2016-09-06] MEDS: KEPPRA PO SCH (08:49)
[2016-09-06] MEDS ORDERED: KLOR-CON PO ONE (09:00)
--- NOTE | 2016-09-06 13:32 | PROGRESS NOTE ---
DATE: 09/06/2016 SUBJECTIVE: This patient is awake today. Her son is at the bedside. I discussed with the son about care of baseline dementia and he corroborates that information. She is alert and oriented x2. She is not oriented in time. She recognizes her son and she is following commands. She is feeling much better today. She is breathing fine. She has no complaint. OBJECTIVE: Temperature 98.2 degrees, pulse 91, respiratory rate 21, blood pressure 161/74, O2 saturation 100% on nasal cannula.HEENT: Head normocephalic. No trauma. PERRLA. Neck: Supple. No JVD. No masses. Cardiovascular: RRR. No murmurs. No gallops. No rubs. Chest: Right side, right upper side and lower lobe rhonchi, decreased breath sounds at the right base. Abdomen: Soft, nontender, nondistended. No hepatosplenomegaly. Extremities: No edema. No clubbing. No cyanosis. Neurological: The patient is alert. She is following commands. She is alert at x2. She is able to recognize her family members. She is not oriented in time, and she is oriented on and off to place. LABORATORY: WBC 5.4, hemoglobin 10.2, hematocrit 30.8 platelet 193,000. Sodium 141, potassium 3.1, chloride 105, bicarbonate 22, BUN 7, creatinine 0.5. Glucose 170. Calcium 7.0. ASSESSMENT AND PLAN: 1. Right lower lung and right upper lung pneumonia possibly related to aspiration pneumonia. We are going to continue with antibiotics. This patient is getting much better. She is not complaining of shortness of breath. 2. Hypoxemia on presentation. She is getting better. We will continue with oxygen. At this moment she is on nasal cannula. She is not having work of breathing. 3. Acute kidney injury. Resolved. 4. Hypothyroidism, stable. Continue treatment. 5. Hypertension. This patient was on amlodipine 5 daily. I increased it to b.i.d. We will continue monitoring her blood pressure. Compared with admission the blood pressure is much better. 6. Uncontrolled diabetes. Her hemoglobin A1c is 9.9. This is not well controlled. We will continue with the same management. The blood sugar is better. Overall, this patient is doing much better. We will continue with the same treatment right now. [facility]. Once she is able to be discharged we will send her back to that place. I will transfer this patient to the medical floor for further treatment. CRITICAL CARE TIME: 35 minutes.
[2016-09-06] MEDS: VANCOMYCIN 1,400 MG in NS 250 ML IV SCH (14:14)
[2016-09-07] MEDS: NS 1,000 ML IV SCH ×2 (00:36→15:05)
[2016-09-07] MEDS: KEPPRA PO SCH ×3 (00:36→20:30)
[2016-09-07] MEDS: AZACTAM 1 GM in NS 50 ML IV SCH ×3 (01:39→17:20)
[2016-09-07 06:39] LABS: MANUAL DIFF NEEDED? NO
[2016-09-07] MEDS: HUMALOG SUBQ SCH ×4 (06:54→21:00)
[2016-09-07] MEDS: SYNTHROID PO SCH (06:55)
[2016-09-07 07:01] LABS: BASO% 0.5 % (0.0-0.8); EOS# 0.15 X1000 (0.0-0.7); EOS% 2.6 % (0.0-10.0); HEMATOCRIT 33.8 % (37.0-47.0); IMM GRAN# 0.03 X1000 (0.0-0.04); IMM GRAN% 0.5 % (0.0-0.5); LYMPH# 1.32 X1000 (1.2-3.4); LYMPH% 22.6 % (20.5-51.1); MCH 29.4 PG (27-31); MCHC 32.5 g/dL (33-37); MCV 90.4 FL (81-99); MONO# 0.55 X1000 (0.11-0.59); MONO% 9.4 % (1.7-9.3); MPV 11.5 FL (7.4-10.4); NEUT% 64.4 % (42.2-75.2); PLT 232 X1000 (130-400); RBC 3.74 XMIL (4.2-5.4)
[2016-09-07 07:14] LABS: AGAP 14; BUN 5 mg/dL (8-22); CALCIUM 8.2 mg/dL (8.8-10.2); CHLORIDE 105 mmol/L (98-107); COSMO 283; POTASSIUM 3.2 mmol/L (3.5-5.1); SODIUM 142 mmol/L (136-145); TCO2 23 mmol/L (25-35)
[2016-09-07] MEDS: XOPENEX NEB INH PRN ×3 (08:06→19:47)
[2016-09-07] MEDS: ATROVENT NEB INH PRN ×3 (08:06→19:47)
[2016-09-07] MEDS ORDERED: KLOR-CON PO ONE (08:22)
[2016-09-07] MEDS: MIRALAX PO SCH (09:06)
[2016-09-07] MEDS: NORVASC PO SCH (09:07)
[2016-09-07] MEDS: ASPIRIN EC PO SCH (09:07)
[2016-09-07] MEDS: VANCOMYCIN 1,400 MG in NS 250 ML IV SCH (15:05)
--- NOTE | 2016-09-07 16:49 | PROGRESS NOTE ---
DATE: 09/07/2016 SUBJECTIVE: This patient looks much better today. She is aware, her son is at the bedside, she is not complaining of shortness of breath, she is more alert, more oriented, she is doing much better. OBJECTIVE: Vital Signs: Temperature 98.2 degrees, pulse 83, respiratory rate 22, blood pressure 151/74, O2 saturation 93 on 2 L of nasal cannula. HEENT: Head normocephalic, no trauma. PERRLA. Neck: Supple. No JVD. No masses. Cardiovascular: RRR. No murmurs. No gallops. No rubs. Chest: Right side upper and lower lobe rhonchi, but compared with yesterday much better. Decreased breath sounds at the right base. Abdomen: Soft, nontender, nondistended. No hepatosplenomegaly. Extremities: No edema. No clubbing. No cyanosis. Neurological: The patient is alert. She is following commands. She is alert x2. She is able to recognize her family members. She is not oriented in time. LABORATORY: WBC 5.8, hemoglobin 11, hematocrit 33.8, platelets 232,000. Sodium 142, potassium 3.2, chloride 105, bicarbonate 23, BUN 5, creatinine 0.5, glucose 149, calcium 8.2. ASSESSMENT AND PLAN: 1. Right lower lung and right upper lung pneumonia, possibly related to aspiration pneumonia. We are going to continue with antibiotics. This patient is getting much better. She is not complaining of shortness of breath. 2. Hypoxemia on presentation, she is better. We will continue with oxygen. At this moment she is on nasal cannula and she is not having work of breathing. 3. Acute kidney injury. Resolved. 4. Hypothyroidism. Stable. Continue treatment. 5. Hypertension. This patient is getting amlodipine 5 twice a day, we will continue monitoring her blood pressure. 6. Uncontrolled diabetes. Her hemoglobin A1c is 9.9, this is not well controlled. We will continue with the same management. The blood sugar is better. Overall, this patient is doing much better. I will continue with the same treatment for now, she is coming from a care home, [facility]. Hopefully tomorrow I want to be able to send her back to that place.
[2016-09-08] MEDS: AZACTAM 1 GM in NS 50 ML IV SCH ×3 (01:08→18:30)
[2016-09-08] MEDS: HUMALOG SUBQ SCH ×5 (06:12→21:35)
[2016-09-08] MEDS: SYNTHROID PO SCH (06:13)
[2016-09-08] MEDS: NS 1,000 ML IV SCH ×3 (06:15→20:16)
[2016-09-08] MEDS: XOPENEX NEB INH PRN (07:38)
[2016-09-08] MEDS: ATROVENT NEB INH PRN (07:38)
[2016-09-08 07:58] LABS: AGAP 16; BUN 6 mg/dL (8-22); CHLORIDE 105 mmol/L (98-107); COSMO 280; POTASSIUM 4.5 mmol/L (3.5-5.1); SODIUM 140 mmol/L (136-145); TCO2 19 mmol/L (25-35)
[2016-09-08 08:28] LABS: BASO% 0.7 % (0.0-0.8); EOS# 0.18 X1000 (0.0-0.7); EOS% 2.5 % (0.0-10.0); HEMATOCRIT 32.6 % (37.0-47.0); HEMOGLOBIN 10.7 g/dL (12.0-16.0); IMM GRAN# 0.05 X1000 (0.0-0.04); IMM GRAN% 0.7 % (0.0-0.5); LYMPH# 1.54 X1000 (1.2-3.4); LYMPH% 21.2 % (20.5-51.1); MANUAL DIFF NEEDED? YES; MCH 30.2 PG (27-31); MCHC 32.8 g/dL (33-37); MCV 92.1 FL (81-99); MONO# 0.52 X1000 (0.11-0.59); MONO% 7.2 % (1.7-9.3); MPV 12.7 FL (7.4-10.4); NEUT% 67.7 % (42.2-75.2); PLT 158 X1000 (130-400); RBC 3.54 XMIL (4.2-5.4)
[2016-09-08 09:00] LABS: LYMPHS 16 % (21-51)
[2016-09-08 09:01] LABS: LARGE PLATELETS 1+
[2016-09-08] MEDS: NORVASC PO SCH (09:45)
[2016-09-08] MEDS: ASPIRIN EC PO SCH (09:45)
[2016-09-08] MEDS: KEPPRA PO SCH ×2 (09:45→20:17)
[2016-09-08] MEDS: VANCOMYCIN 1,400 MG in NS 250 ML IV SCH (13:56)
--- NOTE | 2016-09-08 14:36 | Diag Imaging Result Document ---
PROCEDURE NAME: CHEST-PORTABLE - 09/08/2016 CHEST, SINGLE VIEW: INDICATION: Shortness of breath. COMPARISON: 09/03/2016. FINDINGS: There is cardiomegaly. There is a right upper lobe and perihilar infiltrate suspicious for pneumonia. No effusion. The aorta is tortuous. IMPRESSION: 1. New right perihilar/right upper lobe infiltrate suspicious for pneumonia. 2. Cardiomegaly.
[2016-09-08] MEDS: DUONEB (A & A) INH SCH ×3 (16:10→22:40)
--- NOTE | 2016-09-08 18:24 | PROGRESS NOTE ---
DATE: 09/08/2016 SUBJECTIVE: This patient looks good but she is complaining about shortness of breath, when I checked her the respiratory rate was 23-25, she denies chest pain. No dizziness , no nausea, no vomiting, no sweating, no diarrhea, no constipation. I ordered a chest x-ray, that showed a new right perihilar/right upper lobe infiltrate suspicious for pneumonia. She is already on antibiotics. OBJECTIVE: Vital Signs: Temperature 98.1 degrees, pulse 127, respiratory rate 21, blood pressure 155/72, oxygen saturation 97% on room air. HEENT: Head normocephalic. No trauma. PERRLA. Neck: Supple. No JVD. No masses. Cardiovascular: RRR. No murmurs. Chest : Right side upper and lower lobe rhonchi, decreased breath sounds at the right base with some rales. Abdomen: Soft, nontender, nondistended. No hepatosplenomegaly. Extremities: No edema. No clubbing. No cyanosis. Neurological: The patient is alert. She is following commands. She is alert x2. She is able to recognize her family members. She is not oriented in time. LABORATORY: WBC 7.2, hemoglobin 10.7, hematocrit 32.6, platelets 158,000. Sodium 140, potassium 4.5, chloride 105, bicarbonate 19, BUN 6, creatinine 0.6, glucose 149, calcium 8. ASSESSMENT AND PLAN: 1. Right lower lung, perihilar and right upper lobe pneumonia, possibly related to aspiration pneumonia. This patient is having today shortness of breath. We will put this patient on breathing treatment. We will continue with the antibiotics. 2. Hypoxemia on presentation. She is better. We will continue with oxygen. At this moment she is not on nasal cannula and she is saturating okay. 3. Acute kidney injury. Resolved. 4. Hypothyroidism. Stable. Continue treatment. 5. Hypertension. We will continue with the same treatment for now. 6. Uncontrolled diabetes. Continue with the same management. [facility]
[2016-09-09] MEDS: AZACTAM 1 GM in NS 50 ML IV SCH ×3 (01:28→16:59)
[2016-09-09] MEDS: DUONEB (A & A) INH SCH ×6 (04:10→22:50)
[2016-09-09] MEDS: NS 1,000 ML IV SCH ×3 (06:15→22:46)
[2016-09-09] MEDS: HUMALOG SUBQ SCH ×4 (06:16→21:57)
[2016-09-09] MEDS: SYNTHROID PO SCH (06:16)
[2016-09-09 06:39] LABS: MANUAL DIFF NEEDED? NO
[2016-09-09 07:07] LABS: AGAP 12; BUN 6 mg/dL (8-22); CALCIUM 8.1 mg/dL (8.8-10.2); CHLORIDE 106 mmol/L (98-107); COSMO 283; POTASSIUM 3.2 mmol/L (3.5-5.1); SODIUM 141 mmol/L (136-145); TCO2 23 mmol/L (25-35)
[2016-09-09 07:15] LABS: BASO% 0.1 % (0.0-0.8); EOS# 0.08 X1000 (0.0-0.7); EOS% 1.2 % (0.0-10.0); HEMATOCRIT 31.1 % (37.0-47.0); HEMOGLOBIN 10.2 g/dL (12.0-16.0); IMM GRAN# 0.07 X1000 (0.0-0.04); LYMPH# 1.35 X1000 (1.2-3.4); LYMPH% 19.5 % (20.5-51.1); MCH 29.8 PG (27-31); MCHC 32.8 g/dL (33-37); MCV 90.9 FL (81-99); MONO# 0.39 X1000 (0.11-0.59); MONO% 5.6 % (1.7-9.3); MPV 11.1 FL (7.4-10.4); NEUT% 72.6 % (42.2-75.2); PLT 248 X1000 (130-400); RBC 3.42 XMIL (4.2-5.4)
[2016-09-09] MEDS ORDERED: KLOR-CON PO ONE (08:37)
[2016-09-09] MEDS: MIRALAX PO SCH (08:50)
[2016-09-09] MEDS: KEPPRA PO SCH ×2 (08:50→21:57)
[2016-09-09] MEDS: ASPIRIN EC PO SCH (08:50)
[2016-09-09] MEDS: NORVASC PO SCH ×2 (08:50→21:57)
[2016-09-09] MEDS: VANCOMYCIN 1,400 MG in NS 250 ML IV SCH (14:58)
--- NOTE | 2016-09-09 16:20 | PROGRESS NOTE ---
DATE: 09/09/2016 SUBJECTIVE: This patient states that she is feeling better, she is not complaining of shortness of breath, chest pain, nausea, vomiting, diarrhea or constipation. OBJECTIVE: Vital Signs: Temperature 97.4 degrees, pulse 89, respiratory rate 16, blood pressure 197/81, O2 saturation 97 on room air. HEENT: Head normocephalic. No trauma. PERRLA. Neck: Supple. No JVD. No masses. Cardiovascular: RRR. No murmurs. No gallops. No rubs. Chest: On the right side upper and lower lobe mild rhonchi, decreased breath sounds at the right base with wheeze, mild rales. Abdomen: Soft, nontender, nondistended. No hepatosplenomegaly. Extremities: No edema. No clubbing. No cyanosis. Neurological: The patient is alert. She is following commands. She is alert x2. She is able to recognize her family members and she is not oriented in time, she is not confused. LABORATORY: WBC 6.9, hemoglobin 10.2, hematocrit 31.1, platelet 248,000. Sodium 141, potassium 3.2, chloride 106, bicarbonate 23, BUN 6, creatinine 0.6, glucose 179, calcium 8.1. ASSESSMENT AND PLAN: 1. Right lower lung perihilar and right upper lung pneumonia possible related to aspiration pneumonia. She is not complaining today shortness of breath, no chest pain. We will continue with the breathing treatment and I will continue with the antibiotics. 2. Hypoxemia on presentation. She is better. We will continue with oxygen p.r.n. 3. Acute kidney injury. Resolved. 4. Hypothyroidism stable. Continue treatment. 5. Hypertension. Today I increased the dose of the amlodipine from 5 daily to 5 b.i.d. I will monitor. 6. Uncontrolled diabetes. The blood sugar is getting better. Continue with the same management. This patient is ready to go back to the residential. She is ready to be discharged, likely this is going to be on Sunday because on weekends we cannot send this patient.
[2016-09-10] MEDS: AZACTAM 1 GM in NS 50 ML IV SCH ×3 (02:46→18:57)
[2016-09-10] MEDS: DUONEB (A & A) INH SCH ×6 (03:55→23:43)
[2016-09-10] MEDS: HUMALOG SUBQ SCH ×4 (06:13→21:08)
[2016-09-10] MEDS: SYNTHROID PO SCH (06:13)
[2016-09-10 06:36] LABS: MANUAL DIFF NEEDED? NO
[2016-09-10 06:42] LABS: BASO% 0.2 % (0.0-0.8); EOS# 0.06 X1000 (0.0-0.7); EOS% 1.1 % (0.0-10.0); HEMATOCRIT 31.7 % (37.0-47.0); HEMOGLOBIN 10.1 g/dL (12.0-16.0); IMM GRAN# 0.04 X1000 (0.0-0.04); IMM GRAN% 0.7 % (0.0-0.5); LYMPH# 1.38 X1000 (1.2-3.4); LYMPH% 24.4 % (20.5-51.1); MCH 29.1 PG (27-31); MCHC 31.9 g/dL (33-37); MCV 91.4 FL (81-99); MONO# 0.52 X1000 (0.11-0.59); MONO% 9.2 % (1.7-9.3); MPV 10.8 FL (7.4-10.4); NEUT% 64.4 % (42.2-75.2); PLT 286 X1000 (130-400); RBC 3.47 XMIL (4.2-5.4)
[2016-09-10 06:56] LABS: AGAP 14; BUN 7 mg/dL (8-22); CALCIUM 8.2 mg/dL (8.8-10.2); CHLORIDE 107 mmol/L (98-107); COSMO 286; POTASSIUM 3.6 mmol/L (3.5-5.1); SODIUM 143 mmol/L (136-145); TCO2 22 mmol/L (25-35)
[2016-09-10] MEDS: ASPIRIN EC PO SCH (09:13)
[2016-09-10] MEDS: KEPPRA PO SCH ×2 (09:13→21:07)
[2016-09-10] MEDS: NORVASC PO SCH ×2 (09:13→21:08)
--- NOTE | 2016-09-10 16:03 | PROGRESS NOTE ---
DATE: 09/10/2016 SUBJECTIVE: This patient states that she is feeling better. She is not complaining of shortness of breath, chest pain, nausea, vomiting, diarrhea, constipation. This patient is ready to be discharged but we need to wait until Sunday to be able to [facility] back to the [facility]. OBJECTIVE: Vital Signs: Temperature 97.3 degrees, pulse 84, respiratory rate 18, blood pressure 168/64, oxygen saturation 99 on nasal cannula. HEENT: Head normocephalic. No trauma. PERRLA. Neck: Supple. No JVD. No masses. Cardiovascular: RRR. No murmurs. No gallops. No rubs. Chest: Right side upper and lower lobe mild rhonchi, decreased breath sounds at the right base. No wheezing. No rales. Abdomen: Soft, nontender, nondistended. No hepatosplenomegaly. Extremities: No edema. No clubbing. No cyanosis. Neurological: The patient is alert. She is following commands. She is alert x2. She is able to recognize her family members and she is not oriented in time, she is not confused. LABORATORY: WBC 5.6, hemoglobin 10.1, hematocrit 31.7, platelets 286,000. Sodium 143, potassium 3.6, chloride 107, bicarbonate 22, BUN 7, creatinine 0.5, glucose 150, calcium 8.2. ASSESSMENT AND PLAN: 1. Right lower lung perihilar and right upper lobe pneumonia possibly related to aspiration pneumonia. She is not complaining today of shortness of breath. No chest pain. We will continue with breathing treatment and antibiotics. 2. Hypoxemia on presentation, resolved. Continue with oxygen p.r.n. 3. Acute kidney injury. Resolved. 4. Hypothyroid, stable. Continue with treatment. 5. Hypertension, stable. Continue with amlodipine 5 mg b.i.d. Will monitor. 6. Uncontrolled diabetes. The blood sugar is getting better. Continue with the same management.
[2016-09-10] MEDS: VANCOMYCIN 1,400 MG in NS 250 ML IV SCH (18:57)
[2016-09-10] MEDS: NS 1,000 ML IV SCH (18:58)
[2016-09-11] MEDS: AZACTAM 1 GM in NS 50 ML IV SCH ×2 (01:40→11:03)
[2016-09-11] MEDS: DUONEB (A & A) INH SCH ×6 (03:35→23:45)
[2016-09-11] MEDS: NS 1,000 ML IV SCH (06:18)
[2016-09-11] MEDS: HUMALOG SUBQ SCH ×4 (06:18→21:36)
[2016-09-11] MEDS: SYNTHROID PO SCH (06:18)
[2016-09-11 06:25] LABS: MANUAL DIFF NEEDED? NO
[2016-09-11 06:37] LABS: BASO% 0.2 % (0.0-0.8); EOS# 0.08 X1000 (0.0-0.7); EOS% 1.4 % (0.0-10.0); HEMATOCRIT 31.3 % (37.0-47.0); HEMOGLOBIN 10.1 g/dL (12.0-16.0); IMM GRAN# 0.02 X1000 (0.0-0.04); IMM GRAN% 0.4 % (0.0-0.5); LYMPH# 1.21 X1000 (1.2-3.4); LYMPH% 21.2 % (20.5-51.1); MCH 29.5 PG (27-31); MCHC 32.3 g/dL (33-37); MCV 91.5 FL (81-99); MONO# 0.41 X1000 (0.11-0.59); MONO% 7.2 % (1.7-9.3); MPV 11.1 FL (7.4-10.4); NEUT% 69.6 % (42.2-75.2); PLT 310 X1000 (130-400); RBC 3.42 XMIL (4.2-5.4)
[2016-09-11 06:46] LABS: AGAP 13; BUN 7 mg/dL (8-22); CALCIUM 8.3 mg/dL (8.8-10.2); CHLORIDE 105 mmol/L (98-107); COSMO 283; POTASSIUM 3.4 mmol/L (3.5-5.1); SODIUM 142 mmol/L (136-145); TCO2 24 mmol/L (25-35)
[2016-09-11] MEDS ORDERED: VANCOMYCIN 1,400 MG in NS 250 ML IV SCH (11:00)
[2016-09-11] MEDS: KEPPRA PO SCH ×2 (11:02→21:32)
[2016-09-11] MEDS: MIRALAX PO SCH (11:03)
[2016-09-11] MEDS: NORVASC PO SCH ×2 (11:03→21:32)
[2016-09-11] MEDS: ASPIRIN EC PO SCH (11:03)
[2016-09-11] MEDS ORDERED: KLOR-CON PO ONE (12:50)
--- NOTE | 2016-09-11 14:49 | Diag Imaging Result Document ---
PROCEDURE NAME: CHEST-PORTABLE - 09/11/2016 AP PORTABLE CHEST: TIME: 1335 hours. FINDINGS: There is increased opacification in the perihilar region of the right upper and lower lobes compared to 09/08/2016. IMPRESSION: Worsening right upper and lower lobe pneumonia.
--- NOTE | 2016-09-11 15:15 | PROGRESS NOTE ---
DATE: 09/11/2016 SUBJECTIVE: The patient is resting comfortably in bed. She has no complaints. OBJECTIVE: Vital Signs: Temperature 98.2 degrees, blood pressure 153/59, heart rate 96, respirations 19, O2 saturations 94% on 2 L nasal cannula. General: This is a chronically ill- appearing elderly female lying in bed in no acute distress. Head: Normocephalic, atraumatic. Heart: S1, S2. Normal. Regular rate and rhythm. Lungs: Clear to auscultation bilaterally. No crackles. No rales. Abdomen: Positive bowel sounds. Soft, nontender, nondistended. Extremities: Trace pedal edema. No cyanosis. No calf tenderness. Neurologic : The patient is awake and alert but demented. LABS: White blood cell count 5.7, hemoglobin 10, hematocrit 31, platelets 310, 000. Potassium 3.4, sodium 142, chloride 105, CO2 24, BUN 7, creatinine 0.5, glucose 141. ASSESSMENT AND PLAN: 1. Right lower lobe pneumonia. The chest x-ray today shows that the pneumonia appears to be worsening. Will start the patient on Merrem and consult ID for further assistance. Will also order a swallow evaluation to be sure that the patient is not aspirating when she eats. Continue with bronchodilator therapy and supplemental oxygen. 2. Seizure disorder. Continue on Keppra. 3. Hypothyroidism. Continue on Synthroid. 4. Hypertension. Continue on Norvasc. 5. Constipation. Will add scheduled laxatives. 6. Hypokalemia. Replace potassium. 7. Will consult physical therapy. 8. Disposition. Due to the worsening of the pneumonia seen on chest x-ray, the patient is not ready for discharge to rehab at this time. [facility]
[2016-09-11] MEDS: MERREM 1 GM in NS 50 ML IV SCH (16:23)
--- NOTE | 2016-09-11 17:14 | CONSULTATION ---
DATE OF CONSULTATION: 09/11/2016 CONCLUSION: The patient is admitted to the hospital with pneumonia. Her latest x-ray shows increased opacification on the right upper lobe and right lower lobe. This could be an indicator that her pneumonia is worsening. On the other hand sometimes the chest x-ray often lags behind how the patient is doing clinically and sometimes the x-ray can even look worse even though the patient is getting better. I think the safest thing to assume in this patient who is very elderly that her pneumonia might not be getting better and, therefore, we need to make some change to do that. I have noticed that the patient is on meropenem and vancomycin which supplies very broad- spectrum coverage but I have also noticed the patient's vancomycin levels are low and, therefore, she may not be in fact getting good coverage for organisms that vancomycin covers, specifically methicillin-resistant Staph aureus. RECOMMENDATIONS: I agree with continuing meropenem. I have discontinued vancomycin and placed the patient on p.o. Zyvox. The patient's daughter tells me that the patient takes her medication well. They gave it to her in applesauce. Zyvox by mouth gives equivalent blood levels if the medication is given intravenously. The Zyvox is given with quite a bit of fluids and I am afraid there could be fluid overdose if the patient stays on Zyvox for any length of time. DISCUSSION: The patient is very hard of hearing. She was unable to give a history. The daughter is present and she seemed not to know a lot about the patient's history. The daughter tells me that the patient has been coughing on and off for many months. She was eventually admitted to the hospital. A CT scan of the chest showed that the patient has opacities in the left lower lobe and lingula. There is also a large hiatal hernia present too. The radiologist said the patient had bronchopneumonia and there was a possibility that the patient could have aspirated. The patient's CBC shows a white count of 5710, hemoglobin 10.1, platelet count 310,000, creatinine is 0.5. Today vancomycin level was 2.9. Swab for influenza was negative. [employer] HISTORY: Patient is 3, para 3, AB0. She had a hysterectomy. PREVIOUS HOSPITALIZATIONS AND OPERATIONS: She had labor and deliveries, hysterectomy, and stroke. MEDICAL DISEASES: Positive for hypertension, diabetes mellitus, seizures, stroke, hypothyroidism and hyperlipidemia. INFECTIOUS DISEASE HISTORY: Positive for UTI. FAMILY HISTORY: Positive for congestive heart failure and stroke. SOCIAL HISTORY: The patient lives in the assisted. She is a . ALLERGIES: MARI inhibitors, clonidine, influenza vaccine and penicillin. HOME MEDICATIONS: Zoloft, MiraLAX, Humalog, Synthroid, Keppra, aspirin, Norvasc, Pravachol, Levaquin, Lasix, Colace, Plavix, Dulcolax and albuterol inhaler. PHYSICAL EXAMINATION: Vital Signs: Temperature is 98.2 degrees, pulse 90, respirations 17, blood pressure 178/76. General: This is an ill-appearing, elderly female. She is in no acute distress. Head, eyes, ears, nose, throat: She is edentulous. She has decreased hearing. She can see near objects. Neck: No meningismus. Thorax: No increased AP diameter of the chest. Lungs: Clear to auscultation. Cardiovascular: Heart rate was regular. There were diminished peripheral pulses. Abdomen: Soft and nontender. Neurologic: Patient is awake. She did try to talk. I could not really understand her. She did follow requests to move her extremities. There was no tremor. Integument: No rash noted. PAST MEDICAL HISTORY/REVIEW OF SYSTEMS: Unobtainable from the patient. According to her daughter the patient's main problem is she has decreased hearing. She cannot walk but she does get along since she does move around in the assisted in a wheelchair. She does not appear to have any difficulty breathing. She had not complained to her daughter about chest pain. She was not having nausea, vomiting or diarrhea. She appeared not to have any trouble passing her urine. She had not been having fever or chills and her weight had been stable. The daughter did not notice any skin rashes on the patient. Thank you for the consultation.
[2016-09-11] MEDS: ZYVOX PO SCH (17:47)
[2016-09-11] MEDS: COLACE PO SCH (21:32)
[2016-09-11] MEDS: DULCOLAX PR SCH (21:32)
[2016-09-12] MEDS: MERREM 1 GM in NS 50 ML IV SCH ×3 (00:38→16:18)
[2016-09-12] MEDS: DUONEB (A & A) INH SCH ×6 (03:26→22:47)
[2016-09-12] MEDS: ZYVOX PO SCH ×2 (05:08→17:19)
[2016-09-12 06:53] LABS: MANUAL DIFF NEEDED? NO
[2016-09-12 06:54] LABS: BASO% 0.3 % (0.0-0.8); EOS# 0.09 X1000 (0.0-0.7); EOS% 1.5 % (0.0-10.0); HEMATOCRIT 32.6 % (37.0-47.0); HEMOGLOBIN 10.5 g/dL (12.0-16.0); IMM GRAN# 0.02 X1000 (0.0-0.04); IMM GRAN% 0.3 % (0.0-0.5); LYMPH# 1.41 X1000 (1.2-3.4); LYMPH% 23.3 % (20.5-51.1); MCH 29.4 PG (27-31); MCHC 32.2 g/dL (33-37); MCV 91.3 FL (81-99); MONO# 0.41 X1000 (0.11-0.59); MONO% 6.8 % (1.7-9.3); MPV 10.8 FL (7.4-10.4); NEUT% 67.8 % (42.2-75.2); PLT 320 X1000 (130-400); RBC 3.57 XMIL (4.2-5.4)
[2016-09-12 07:12] LABS: AGAP 13; BUN 8 mg/dL (8-22); CALCIUM 8.3 mg/dL (8.8-10.2); CHLORIDE 104 mmol/L (98-107); COSMO 284; POTASSIUM 3.9 mmol/L (3.5-5.1); SODIUM 142 mmol/L (136-145); TCO2 25 mmol/L (25-35)
[2016-09-12] MEDS: HUMALOG SUBQ SCH ×4 (10:39→22:21)
[2016-09-12] MEDS: KEPPRA PO SCH ×2 (10:40→22:18)
[2016-09-12] MEDS: ASPIRIN EC PO SCH (10:40)
[2016-09-12] MEDS: NORVASC PO SCH ×2 (10:40→22:18)
[2016-09-12] MEDS: COLACE PO SCH (10:40)
[2016-09-12] MEDS: SYNTHROID PO SCH (10:41)
--- NOTE | 2016-09-12 13:19 | Diag Imaging Result Document ---
PROCEDURE NAME: BA SWALLOW W/VIDEO SPEECH THER - 09/12/2016 MODIFIED BARIUM SWALLOW: FINDINGS: The patient is able to swallow barium without apparent difficulty. No aspiration is demonstrated. There is marked tertiary contraction formation verging on spasm in the mid and distal thoracic esophagus. IMPRESSION: 1. Severe presbyesophagus. 2. No evidence of aspiration.
--- NOTE | 2016-09-12 15:26 | PROGRESS NOTE ---
DATE: 09/12/2016 SUBJECTIVE: The patient is resting comfortably. No acute events noted overnight. OBJECTIVE: Vital Signs: Temperature 97.6 degrees, blood pressure 154/62, heart rate 90, respirations 24. O2 saturations 95% on room air. General: This is a chronically ill-appearing, elderly female, lying in bed, in no acute distress. Head: Normocephalic atraumatic. Heart: S1, S2. Normal. Regular rate and rhythm. Lungs: Clear to auscultation bilaterally. No wheezes, no rales. No rhonchi. Abdomen: Positive bowel sounds. Soft, nontender, nondistended. Extremities: No edema. No cyanosis. LAB: Potassium 3.9, sodium 142. White blood cell count 6, hemoglobin 10, hematocrit 32, platelets 320,000. BUN 8, creatinine 0.6, calcium 8.3. ASSESSMENT AND PLAN: 1. Right lower lobe pneumonia. Continue on the current IV antibiotic regimen as directed by Dr. Perez. 2. Seizure disorder. Continue on Keppra. 3. Hypothyroidism. Continue on Synthroid. 4. Hypertension. Continue on Norvasc. 5. Constipation. Continue on laxatives therapy. 6. Continue with physical therapy.
--- NOTE | 2016-09-12 16:14 | PROGRESS NOTE ---
DATE: 09/12/2016 PRESENT ILLNESS: The patient is being treated for a right-sided pneumonia. Her latest chest x- ray showed the opacification was increasing. MEDICATIONS: The patient is receiving a combination of meropenem and Zyvox. The meropenem is IV and the Zyvox is p.o. This is day 1 of treatment with both agents. PHYSICAL EXAMINATION: Vital Signs: Temperature is 97.6 degrees, pulse 90, respirations 24, blood pressure 154/62. General: This is an ill-appearing, elderly female. She is in no acute distress. Lungs: There were diminished breath sounds on the right side, but both sides sounded clear. Cardiovascular: Heart rate is regular. Abdomen: Soft and nontender. LAB AND X-RAY: The patient did have a barium swallow today and it showed no aspiration. There is no new x-ray today. The labs for today show a CBC with a white count of 6050, hemoglobin 10.5 and platelet count 320,000. Creatinine 0.6. GFR is greater than 60. ASSESSMENT AND PLAN: Patient has pneumonia. My plan is to continue with oral Zyvox and intravenous meropenem. COMORBIDITIES: The patient's comorbidities consists of the fact she is elderly, that she is a diabetic, she has seizures, she has had a stroke.
[2016-09-12] MEDS: DULCOLAX PR SCH (22:18)
[2016-09-13] MEDS: DUONEB (A & A) INH SCH ×6 (03:40→23:23)
[2016-09-13] MEDS: ZYVOX PO SCH ×2 (05:59→18:24)
[2016-09-13] MEDS: MERREM 1 GM in NS 50 ML IV SCH ×3 (05:59→16:11)
[2016-09-13] MEDS: SYNTHROID PO SCH (05:59)
[2016-09-13] MEDS: COLACE PO SCH ×3 (06:02→23:41)
[2016-09-13] MEDS: HUMALOG SUBQ SCH ×3 (06:02→16:12)
[2016-09-13 06:30] LABS: MANUAL DIFF NEEDED? NO
[2016-09-13 06:35] LABS: BASO% 0.3 % (0.0-0.8); EOS# 0.08 X1000 (0.0-0.7); EOS% 1.3 % (0.0-10.0); HEMATOCRIT 34.5 % (37.0-47.0); HEMOGLOBIN 11.2 g/dL (12.0-16.0); IMM GRAN# 0.02 X1000 (0.0-0.04); IMM GRAN% 0.3 % (0.0-0.5); LYMPH# 1.15 X1000 (1.2-3.4); LYMPH% 19.4 % (20.5-51.1); MCH 29.6 PG (27-31); MCHC 32.5 g/dL (33-37); MONO# 0.41 X1000 (0.11-0.59); MONO% 6.9 % (1.7-9.3); NEUT% 71.8 % (42.2-75.2); PLT 349 X1000 (130-400); RBC 3.79 XMIL (4.2-5.4)
[2016-09-13 07:10] LABS: AGAP 14; BUN 9 mg/dL (8-22); CALCIUM 8.7 mg/dL (8.8-10.2); CHLORIDE 101 mmol/L (98-107); COSMO 279; SODIUM 139 mmol/L (136-145); TCO2 24 mmol/L (25-35)
--- NOTE | 2016-09-13 08:36 | PROGRESS NOTE ---
DATE: 09/13/2016 PRESENT ILLNESS: The patient has a right-sided pneumonia. She did not have any new x-rays done today. MEDICATIONS: This is day 2 of treatment with a combination of meropenem and Zyvox. PHYSICAL EXAMINATION: Vital Signs: Temperature is 97.9 degrees. Pulse 91. Respirations 16. Blood pressure 146/87. General: This is an ill-appearing, elderly female. She is in no acute distress. Lungs: Clear to auscultation. Cardiovascular: Heart rate was regular. Abdomen: Soft and nontender. Neurologic: The patient is obtunded. She did not respond to verbal stimuli. Her eyes were closed. LABORATORY AND X-RAY DATA: The CBC for today shows a white count of 5940, hemoglobin 11.2, and platelet count 349,000. Creatinine is 0.6. The patient's creatinine is 0.6. The GFR is greater than 60. Blood cultures thus far are negative. Swab for influenza is negative. ASSESSMENT AND PLAN: The patient has pneumonia. My plan is to continue Zyvox and meropenem. This will be day 2 of treatment with both agents. COMORBIDITIES: The patient's comorbidities include she is elderly and she has diabetes mellitus and seizures, and had a stroke in the past.
[2016-09-13] MEDS: KEPPRA PO SCH ×2 (09:59→23:41)
[2016-09-13] MEDS: ASPIRIN EC PO SCH (09:59)
[2016-09-13] MEDS: NORVASC PO SCH ×2 (09:59→23:41)
[2016-09-13] MEDS: MIRALAX PO SCH (10:00)
--- NOTE | 2016-09-13 14:54 | PROGRESS NOTE ---
DATE: 09/13/2016 SUBJECTIVE: The patient was resting comfortably in bed. She was sitting up eating her breakfast. OBJECTIVE: Vital Signs: Temperature 97.9 degrees, blood pressure 146/87, heart rate 83, respirations 18. O2 saturations 94% on room air. General: This is an elderly female, sitting up in bed, in no acute distress. Head: Normocephalic, atraumatic. Heart: S1, S2 normal. Regular rate and rhythm. Lungs: Clear to auscultation bilaterally. No wheezing. No rales. No rhonchi. Abdomen: Positive bowel sounds. Soft, nontender, nondistended. Extremities: No edema. No cyanosis. No calf tenderness. Peripheral pulses palpable. Neurologic: The patient is awake and alert. LABS: White blood cell count 5.9, hemoglobin 11, hematocrit 34, platelets 349, 000. Sodium 139, potassium 4, chloride 101, CO2 24, BUN 9, creatinine 0.6, glucose 149. ASSESSMENT AND PLAN: 1. Pneumonia. We will continue on the current IV antibiotic regimen as directed by Dr. Perez. 2. Seizure disorder. Continue on Keppra. 3. Hypothyroidism. Continue on Synthroid. 4. Hypertension. Continue on Norvasc. 5. Continue with physical therapy. DISPOSITION: The patient will be discharged to the care home once cleared by Dr. Perez. [facility]
[2016-09-13] MEDS: DULCOLAX PR SCH (23:41)
[2016-09-14] MEDS: MERREM 1 GM in NS 50 ML IV SCH ×4 (00:03→23:44)
[2016-09-14] MEDS: HUMALOG SUBQ SCH ×5 (00:10→21:04)
[2016-09-14] MEDS: DUONEB (A & A) INH SCH ×6 (02:51→23:49)
[2016-09-14 06:39] LABS: MANUAL DIFF NEEDED? NO
[2016-09-14] MEDS: ZYVOX PO SCH ×2 (06:49→18:06)
[2016-09-14] MEDS: SYNTHROID PO SCH (06:49)
[2016-09-14 07:11] LABS: BASO% 0.3 % (0.0-0.8); EOS# 0.11 X1000 (0.0-0.7); EOS% 1.7 % (0.0-10.0); HEMATOCRIT 35.3 % (37.0-47.0); HEMOGLOBIN 11.4 g/dL (12.0-16.0); IMM GRAN# 0.02 X1000 (0.0-0.04); IMM GRAN% 0.3 % (0.0-0.5); LYMPH# 1.53 X1000 (1.2-3.4); LYMPH% 23.4 % (20.5-51.1); MCH 29.5 PG (27-31); MCHC 32.3 g/dL (33-37); MCV 91.5 FL (81-99); MONO# 0.43 X1000 (0.11-0.59); MONO% 6.6 % (1.7-9.3); MPV 10.9 FL (7.4-10.4); NEUT% 67.7 % (42.2-75.2); PLT 349 X1000 (130-400); RBC 3.86 XMIL (4.2-5.4)
[2016-09-14 07:13] LABS: AGAP 14; BUN 11 mg/dL (8-22); CALCIUM 8.6 mg/dL (8.8-10.2); CHLORIDE 102 mmol/L (98-107); COSMO 282; POTASSIUM 3.8 mmol/L (3.5-5.1); SODIUM 140 mmol/L (136-145); TCO2 24 mmol/L (25-35)
--- NOTE | 2016-09-14 09:18 | PROGRESS NOTE ---
DATE: 09/14/2016 PRESENT ILLNESS: The patient has pneumonia on the right side. MEDICATIONS: This is day 3 of treatment with a combination of Zyvox p.o. and meropenem IV. PHYSICAL EXAMINATION: Vital Signs: Temperature is 98 degrees, pulse 80, respirations 18, blood pressure 159/57. General: This is an ill-appearing, elderly female. She is in no acute distress. Lungs: Clear to auscultation. Cardiovascular: Heart rate was regular. Abdomen: Soft and nontender. Neurologic: Patient is lethargic she is able to carry on a conversation. She can move her extremities. LAB AND X-RAY: There is no new x-ray. The lab studies show a CBC with a white count of 6.54, hemoglobin 11.4, and platelet 349,000. Creatinine is 0.7. GFR is greater than 60. ASSESSMENT AND PLAN: The patient has pneumonia. The plan is to continue Zyvox and meropenem. This is day 3 of treatment. I plan to order a portable chest x-ray on the patient. The patient's comorbidities include she is elderly, she has diabetes mellitus, seizures, and in the past has had a stroke.
[2016-09-14] MEDS: ASPIRIN EC PO SCH (09:34)
[2016-09-14] MEDS: COLACE PO SCH ×2 (09:34→21:04)
[2016-09-14] MEDS: NORVASC PO SCH ×2 (09:34→21:04)
[2016-09-14] MEDS: KEPPRA PO SCH ×2 (09:34→21:04)
--- NOTE | 2016-09-14 10:45 | Diag Imaging Result Document ---
PROCEDURE NAME: CHEST-1 VIEW - 09/14/2016 AP PORTABLE CHEST: TIME: 1020 hours. FINDINGS: Compared to 09/11/2016 the opacity which was previously present in the right upper lobe has largely cleared and the lung bases are clearer in appearance. IMPRESSION: Improved pulmonary edema and/or pneumonia.
--- NOTE | 2016-09-14 11:29 | PROGRESS NOTE ---
DATE: 09/14/2016 SUBJECTIVE: The patient is resting comfortably in bed. She just got through eating her breakfast. OBJECTIVE: Vital Signs: Temperature 97 degrees. Blood pressure 188/86. Heart rate 101. Respirations 18. O2 saturations 95% on room air. General: This is an elderly female, lying comfortably in bed, in no acute distress. Head: Normocephalic, atraumatic. Heart: S1, S2. Normal. Regular rate and rhythm. Lungs: Clear to auscultation bilaterally. No wheezes. No rales. No rhonchi. Abdomen: Positive bowel sounds. Soft, nontender, nondistended. Extremities: No edema. No cyanosis. No calf tenderness. Peripheral pulses palpable. Neurological: Patient is awake and alert. No focal deficits noted. LABORATORY DATA: White blood cell count 6.5. Hemoglobin 11. Hematocrit 35. Platelets 349,000. Sodium 140. Potassium 3.8. Chloride 102. CO2 of 24. BUN 11. Creatinine 0.7. Glucose 151. Calcium 8.6. ASSESSMENT AND PLAN: 1. Pneumonia. Continue on the current IV antibiotic regimen as directed by Dr. Perez. 2. Seizure disorder. Continue on Keppra. 3. Hypothyroidism. Continue on Synthroid. 4. Hypertension. Continue on Norvasc. 5. Continue with physical therapy. 6. Disposition. The patient will be discharged back to the residential once cleared by Dr. Perez.
[2016-09-14] MEDS: DULCOLAX PR SCH (21:04)
[2016-09-15] MEDS: DUONEB (A & A) INH SCH ×5 (03:27→23:24)
[2016-09-15] MEDS: HUMALOG SUBQ SCH ×4 (06:08→21:27)
[2016-09-15] MEDS: SYNTHROID PO SCH (06:16)
[2016-09-15] MEDS: ZYVOX PO SCH ×2 (06:16→18:37)
[2016-09-15 07:30] LABS: HEMATOCRIT 34.4 % (37.0-47.0); MCH 29.8 PG (27-31); MCV 93.2 FL (81-99); MPV 11.2 FL (7.4-10.4); RBC 3.69 XMIL (4.2-5.4)
[2016-09-15 07:47] LABS: AGAP 14; BUN 13 mg/dL (8-22); CALCIUM 8.7 mg/dL (8.8-10.2); CHLORIDE 100 mmol/L (98-107); COSMO 280; SODIUM 139 mmol/L (136-145); TCO2 25 mmol/L (25-35)
[2016-09-15] MEDS: MERREM 1 GM in NS 50 ML IV SCH ×2 (10:28→18:36)
[2016-09-15] MEDS: NORVASC PO SCH ×2 (10:29→21:23)
[2016-09-15] MEDS: COLACE PO SCH ×2 (10:29→21:23)
[2016-09-15] MEDS: ASPIRIN EC PO SCH (10:29)
[2016-09-15] MEDS: MIRALAX PO SCH (10:29)
[2016-09-15] MEDS: KEPPRA PO SCH ×2 (10:29→21:23)
--- NOTE | 2016-09-15 15:54 | PROGRESS NOTE ---
DATE: 09/15/2016 PRESENT ILLNESS: The patient has a right-sided pneumonia. MEDICATIONS: This is day 4 for treatment with a combination of IV meropenem and p.o. Zyvox. PHYSICAL EXAMINATION: Vital Signs: Temperature is 97.3 degrees, pulse 77, respirations 15, blood pressure 118/87. General: This is an ill-appearing, elderly female. She is in no acute distress. Lungs: Clear to auscultation. Cardiovascular: Heart rate is regular. Abdomen: Soft and nontender. Neurologic: Patient is awake. She can move her extremities. There is no tremor. LAB AND X-RAY: The chest x-ray shows clearing of the right lung infiltrate, only a small amount exists. CBC shows a white count of 6700, hemoglobin 11 and platelet count 382, 000. Creatinine is 0.7. GFR is greater than 60. ASSESSMENT AND PLAN: Patient has pneumonia. My plan would be to continue Zyvox and meropenem over the weekend. I think by the first of the week the [facility] can [facility]. I plan to order a portable chest x-ray on SundaySeptember 17 in the morning. COMORBIDITIES: Include she is elderly. She has diabetes mellitus, seizures and in the past had a stroke. [facility]
--- NOTE | 2016-09-15 20:37 | PROGRESS NOTE ---
DATE: 09/15/2016 SUBJECTIVE: The patient is resting comfortably in bed. No acute events noted overnight. OBJECTIVE: Vital Signs: Temperature 97.3 degrees, blood pressure 118/87, heart rate 92, respirations 18, O2 saturations 95% on room air. General: This is an elderly female lying in bed in no acute distress. Head: Normocephalic, atraumatic. Heart: S1, S2. Normal. Regular rate and rhythm. Lungs: Clear to auscultation bilaterally. No wheezes, no rales. No rhonchi. Abdomen: Positive bowel sounds. Soft, nontender, nondistended. Extremities: No edema. No cyanosis. Neurologic: The patient is demented. LABS: Reviewed. ASSESSMENT AND PLAN: 1. Pneumonia. Continue on IV antibiotic therapy as directed by Dr. Perez. 2. Seizure disorder. Continue on Keppra. 3. Hypothyroidism. Continue on Synthroid. 4. Hypertension. Controlled. 5. Continue with physical therapy. 6. The patient will be discharged to rehabilitation either Sunday or Sunday of next week.
[2016-09-15] MEDS: DULCOLAX PR SCH (21:23)
[2016-09-16] MEDS: MERREM 1 GM in NS 50 ML IV SCH ×3 (00:23→17:48)
[2016-09-16] MEDS: DUONEB (A & A) INH SCH ×6 (03:29→23:32)
[2016-09-16] MEDS: ZYVOX PO SCH ×2 (06:11→17:48)
[2016-09-16] MEDS: SYNTHROID PO SCH (06:11)
[2016-09-16] MEDS: HUMALOG SUBQ SCH ×4 (06:11→22:29)
[2016-09-16] MEDS: COLACE PO SCH ×2 (10:21→22:29)
[2016-09-16] MEDS: NORVASC PO SCH ×2 (10:21→22:29)
[2016-09-16] MEDS: ASPIRIN EC PO SCH (10:21)
[2016-09-16] MEDS: KEPPRA PO SCH ×2 (10:21→22:29)
--- NOTE | 2016-09-16 12:15 | PROGRESS NOTE ---
DATE: 09/16/2016 SUBJECTIVE: The patient is resting comfortably in bed. She ate her breakfast this morning. She also had a bowel movement. OBJECTIVE: Vital Signs: Temperature 98 degrees, blood pressure 155/77, heart rate 90, respirations 18, O2 saturations 95% on room air. General: This is an elderly female, lying comfortably in bed, in no acute distress. Head: Normocephalic, atraumatic. Heart: S1, S2 normal. Regular rate and rhythm. Lungs: Clear to auscultation bilaterally. No wheezing. No rales. No rhonchi. Abdomen: Positive bowel sounds. Soft, nontender, nondistended. Extremities: No edema. No cyanosis. No calf tenderness. Peripheral pulses palpable. Neurologic: The patient is awake and alert. LABS: None. ASSESSMENT AND PLAN: 1. Pneumonia. Continue on IV antibiotic therapy as directed by Dr. Perez. 2. Seizure disorder. Continue on Keppra. 3. Hypothyroidism. Continue on Synthroid. 4. Hypertension. Controlled. 5. Dementia. Aware. 6. Continue with physical therapy. 7. Disposition. The patient should be stable for discharge to rehab on Sunday.
[2016-09-16] MEDS: DULCOLAX PR SCH (22:29)
[2016-09-17] MEDS: MERREM 1 GM in NS 50 ML IV SCH ×3 (02:46→21:07)
[2016-09-17] MEDS: DUONEB (A & A) INH SCH ×6 (03:20→23:06)
[2016-09-17] MEDS: HUMALOG SUBQ SCH ×5 (06:07→21:24)
[2016-09-17] MEDS: SYNTHROID PO SCH (06:07)
[2016-09-17] MEDS: ZYVOX PO SCH ×2 (06:07→21:03)
[2016-09-17] MEDS: MIRALAX PO SCH (10:27)
[2016-09-17] MEDS: KEPPRA PO SCH ×2 (10:27→21:02)
[2016-09-17] MEDS: NORVASC PO SCH ×2 (10:28→21:03)
[2016-09-17] MEDS: COLACE PO SCH ×2 (10:28→21:02)
[2016-09-17] MEDS: ASPIRIN EC PO SCH (10:28)
--- NOTE | 2016-09-17 15:17 | PROGRESS NOTE ---
DATE: 09/17/2016 SUBJECTIVE: The patient is sitting up in bed, trying to eat breakfast. No acute events noted overnight. OBJECTIVE: Vital Signs: Temperature 97.9 degrees, blood pressure 159/72, heart rate 91, respirations 20, O2 saturations 100% on room air. General: This is an elderly female, sitting up in bed, in no acute distress. Head: Normocephalic, atraumatic. Heart: S1, S2. Normal. Regular rate and rhythm. Lungs: Clear to auscultation bilaterally. No wheezes, no rales. No rhonchi. Abdomen: Positive bowel sounds. Soft, nontender, nondistended. Extremities: No edema. No cyanosis. No calf tenderness. Neurological: Patient is alert and oriented. LABORATORY: None. ASSESSMENT AND PLAN: 1. Pneumonia. Continue on Zyvox and Merrem. 2. Seizure disorder. Continue on Keppra. 3. Hypothyroidism. Continue on Synthroid. 4. Hypertension. Controlled. 5. Dementia. Aware. 6. Continue with physical therapy. 7. Disposition. The patient should be stable for discharge to the residential tomorrow.
[2016-09-17] MEDS: DULCOLAX PR SCH (21:03)
[2016-09-18] MEDS: DUONEB (A & A) INH SCH ×4 (03:16→16:29)
[2016-09-18] MEDS: MERREM 1 GM in NS 50 ML IV SCH ×2 (03:32→14:29)
[2016-09-18] MEDS: HUMALOG SUBQ SCH ×3 (06:21→17:10)
[2016-09-18] MEDS: ZYVOX PO SCH (06:31)
[2016-09-18] MEDS: SYNTHROID PO SCH (06:31)
[2016-09-18 06:51] LABS: HEMATOCRIT 34.4 % (37.0-47.0); HEMOGLOBIN 11.1 g/dL (12.0-16.0); MCH 29.9 PG (27-31); MCHC 32.3 g/dL (33-37); MCV 92.7 FL (81-99); MPV 10.5 FL (7.4-10.4); RBC 3.71 XMIL (4.2-5.4)
[2016-09-18 07:15] LABS: AGAP 11; BUN 12 mg/dL (8-22); CALCIUM 8.4 mg/dL (8.8-10.2); CHLORIDE 99 mmol/L (98-107); COSMO 273; POTASSIUM 4.1 mmol/L (3.5-5.1); SODIUM 135 mmol/L (136-145); TCO2 25 mmol/L (25-35)
--- NOTE | 2016-09-18 09:55 | Diag Imaging Result Document ---
PROCEDURE NAME: CHEST-1 VIEW - 09/18/2016 PORTABLE CHEST: Compared with 09/14/2016. FINDINGS: Patient is mildly rotated towards the right. Heart size appears within normal limits. There is tortuosity of the thoracic aorta similar to the previous exam. There is exaggeration of central markings on the left due to the rotation. There is no dense consolidation, pleural effusion, or pneumothorax identified. IMPRESSION: Allowing for rotation, no definite evidence of acute disease.
[2016-09-18] MEDS: ASPIRIN EC PO SCH (14:27)
[2016-09-18] MEDS: COLACE PO SCH (14:30)
[2016-09-18] MEDS: NORVASC PO SCH (14:32)
[2016-09-18] MEDS: KEPPRA PO SCH (14:32)
[2016-09-18 15:48] VITALS: BP 154/61
--- NOTE | 2016-09-18 16:28 | PROGRESS NOTE ---
DATE: 09/18/2016 SUBJECTIVE: The patient is sitting up in bed, in no acute distress. OBJECTIVE: Vital signs: Temperature is 97.5 degrees, heart rate 85, respirations 20, blood pressure 160/65, O2 is 92% on room air. General: This is an elderly female sitting up in bed, in no acute distress. HEENT: Atraumatic, normocephalic. PERRL. CV: S1, S2. Regular rate and rhythm. Lungs: Clear to auscultation bilaterally. No wheezes, rales, or rhonchi. Abdomen: Soft, nontender, nondistended. Positive bowel sounds 4 quadrants. Extremities: No edema. No cyanosis. Bilateral pedal pulses are palpable. Neurologic: Patient is alert and oriented. No focal deficits. She states she is ready to go to rehab. LABORATORY DATA: CBC: White count 4, hemoglobin 11, hematocrit is 34, platelet count is 361,000. Chemistry: Sodium 135, potassium 4.1, BUN is 12, creatinine 0.6, blood glucose 150. DIAGNOSTIC DATA: Chest x-ray showed no evidence of acute disease. ASSESSMENT AND PLAN: 1. Pneumonia. Continue with Zyvox and Merrem per Dr. Perez. 2. Seizure disorder. Continue Keppra. 3. Hypothyroidism. Continue Synthroid. 4. Hypertension, controlled. 5. Dementia, aware. 6. Continue with physical therapy. DISPOSITION: The patient is stable for discharge. She is awaiting a rehab bed. Further recommendations to follow physician evaluation. Dictated by EUGENIO Oviedo for Hai Chirinos MD MD Addendum; I personally evaluated and examined the patient in conjunction to the [employer] and agreed with her assessment and plans. She is medically stable to be discharged back to the [facility]. SHAHID
--- NOTE | 2016-09-18 17:25 | DISCHARGE SUMMARY ---
ADMISSION DATE: 09/03/2016 DISCHARGE DATE: 09/18/2016 PCP: At her shelter. DISCHARGE DIAGNOSES: 1. Healthcare-associated pneumonia. 2. Diabetes. 3. Hypertension. 4. History of seizure disorder. 5. Hypothyroidism. 6. Hyperlipidemia. 7. Dementia. 8. Diabetes type 2. 9. Depression. 10. Dysphagia. 11. Muscle weakness. 12. History of cerebrovascular accident. DISCHARGE MEDICATIONS: 1. DuoNeb nebulizer every 4 hours as needed for shortness of breath. 2. Plavix 75 mg p.o. daily. 3. Dulcolax 10 mg at bedtime. 4. Colace 100 mg twice a day. 5. Lasix 20 mg p.o. daily. 6. Gabapentin 100 mg p.o. daily. 7. Pravastatin 20 mg at bedtime. 8. Norvasc 5 mg p.o. daily. 9. Aspirin 81 mg p.o. daily. 10. Humalog per sliding scale insulin. 11. Keppra 1000 mg twice a day. 12. Synthroid 50 mcg daily. 13. MiraLAX 17 g every other day. 14. Zoloft 25 mg daily. SIGNIFICANT LABORATORY AND IMAGING: Chest x-ray on admission showed poor inspirations. CAT scan of the chest showed bronchial pneumonia. Microbiology cultures have remained negative thus far. LABORATORY: At discharge. White count 4.64, hemoglobin 11.1, hematocrit 34.4, platelets of 361,000. Chemistry. Sodium 135, potassium 4.1, chloride 99, bicarb 25, BUN 12, creatinine 0.6, glucose 150. CONSULTATION: ID was consulted. Dr. Vamsi Perez saw the patient. Recommended 2 weeks of antibiotics. HOSPITAL COURSE: The patient is an 89-year-old shelter resident presented to the hospital for shortness of breath, nausea, vomiting and fever and was found to have bronchial pneumonia. The patient is a shelter resident. We were treating the patient as if she was having healthcare associated pneumonia with broad-spectrum antibiotics. The patient has been on Zyvox and meropenem. Shortly after her admission has been doing relatively well with the 2 medications. Portable chest x-ray done today and it did not show any evidence of active disease. The patient has completed 2-week course of antibiotics for HCAP. For her other current chronic disease resume her Keppra for her seizure disorder. We did not make any changes to her medications. Initially when she was on vancomycin the patient did have acute kidney injury. That has been resolved. Will resume her home medications and will discharge the patient back to the shelter. PHYSICAL EXAMINATION: Vital Signs: At discharge. Blood pressure 154/61, pulse of 90, respirations 20, temperature 97.5 degrees, saturations of 92% on room air. General appearance: Elderly white female in no acute distress. HEENT: Anicteric sclerae, clear conjunctivae. Neck: Supple. No JVD. No bruit. Cardiovascular: S1, S2. Normal rate and rhythm. No murmur, rubs, or gallops. Pulmonary: Clear to auscultation bilaterally. Gastrointestinal: Soft, nontender, nondistended. Normoactive bowel sounds. Musculoskeletal: No clubbing, cyanosis or edema. PLAN: Will discharge the patient back to the shelter. CONDITION: Stable and improving. ACTIVITY: As tolerated. FOLLOWUP: The patient can follow up with her PCP in 1-2 weeks. Total time discharging this patient 35 minutes.
--- NOTE | 2016-10-31 20:09 | DISCHARGE SUMMARY ---
ADMISSION DATE: 09/03/2016 DISCHARGE DATE: 09/18/2016 DISCHARGE SUMMARY ADDENDUM: The patient was having sepsis on admission secondary to healthcare-associated pneumonia and no bacteria. We were unable to do identify the bacteria.
== END 2016-09-18 17:21 | DRG 871 ==
LOC: EDBD → ED 01:28 → SUATTDRO 01:28 → EDIPHOLD 07:58 → 3S 21:26 → 3N 09-06 14:37
PROVIDERS: ATTEND Internal Medicine
DX: A41.9 Sepsis, unspecified organism (principal); J18.0 Bronchopneumonia, unspecified organism; N17.9 Acute kidney failure, unspecified; E87.2 Acidosis; E11.65 Type 2 diabetes mellitus with hyperglycemia; R13.10 Dysphagia, unspecified; E86.0 Dehydration; F03.90 Unspecified dementia, unspecified severity, without behavioral disturbance, psychotic disturbance, mood disturbance, and anxiety; G40.909 Epilepsy, unspecified, not intractable, without status epilepticus; I10 Essential (primary) hypertension; Y95 Nosocomial condition; E03.9 Hypothyroidism, unspecified; E78.5 Hyperlipidemia, unspecified; F32.9 Major depressive disorder, single episode, unspecified; I77.9 Disorder of arteries and arterioles, unspecified; R09.02 Hypoxemia; E87.6 Hypokalemia; K59.00 Constipation, unspecified; K44.9 Diaphragmatic hernia without obstruction or gangrene; Z86.73 Personal history of transient ischemic attack (TIA), and cerebral infarction without residual deficits; Z99.3 Dependence on wheelchair; Z82.3 Family history of stroke; Z79.82 Long term (current) use of aspirin; Z79.4 Long term (current) use of insulin; Z79.899 Other long term (current) drug therapy
CPT/HCPCS: 36415; 71010; 71250; 74230; 80048; 80053; 80202; 81001; 82009; 82270; 82805; 82948; 83036; 83605; 83735; 83880; 84443; 84484; 85025; 85027; 87040; 87804; 93005; 94640; 94760; 94761; 94799; 96365; 96366; 96367; 96368; 96375; J0131; J0360; J0456; J0696; J1815; J2185; J2270; J3370; J7030; J7050; S0073; 92611-GN; 97110-GP; 97530-GP